=== PATIENT | female | born 1955 | race African-American/Black ===

== ENCOUNTER 2016-08-30 06:55 | Emergency (ER) | payer MEDICARE, OTHER ==
--- NOTE | ~2016-08-30 | OR ---
Unit #: [id number] #: [id number] Patient: ERIKA THOMPSON [id number] [address] [place], [place] [address] [id number] MR#: [id number] NAME: ERIKA THOMPSON ROOM: Date of Procedure: 08/30/2016 Admission Date: 08/30/2016 Surgeon: Roosevelt Resendiz M.D. : 1955 Attending Physician: Med Price M.D. Primary Care Physician: Primary Care Physician No OPERATIVE REPORT JOB NOTE: CC: PRIMARY CARE PHYSICIAN INDICATIONS FOR PROCEDURE Esophagogastroduodenoscopy with percutaneous endoscopic gastrostomy tube placement. INDICATIONS FOR PROCEDURE The patient had a G-tube placement for dysphagia. She had it pulled out, so currently have no enteral access and she is brought in for an EGD and PEG tube placement. MEDICATIONS Monitored anesthesia. POSTOPERATIVE FINDINGS 1. Small hiatal hernia. 2. Mild chronic gastritis. 3. Normal duodenum and distal duodenum. 4. Successful placement of PEG tube by push method. PLAN Restart feeding and medications. DESCRIPTION OF PROCEDURE The patient was explained of the procedure, risks, and benefits. Informed consent was obtained from power of compliance attorney. She was brought to the endoscopy room. Propofol anesthesia was given. The scope was passed down the mouth into the esophagus, stomach, duodenum, and distal duodenum. Exam was completed. I passed a wire through the previous gastrostomy hole after a little manipulation, which was then pulled out of the patient's mouth using a snare along with the scope. A new push method tube was placed over the wire and pulled out of the anterior abdominal wall, where it was secured with an external bumper. The scope was reintroduced to look at the inner bumper, which was nicely in place. Gently, I pulled the scope out. She tolerated it well. No major complications were seen. Dictated by... Fan Magallon/damian Unit #: [id number] #: [id number] Patient: ERIKA THOMPSON TD: 08/30/2016 21:56 JOB #: [id number] OPERATIVE REPORT X Roosevelt Resendiz MD OPERATIVE NOTE
[~2016-08-30 06:55] MED LIST: AMLODIPINE BESYL5 MG PO; AUGMENTIN PO; BENZTROPINE MESY1 MG PO; BP MED PO; BUMETANIDE1 MG PO; COLACE PO; DICLOFENAC PO; FAMVIR500 M1 PO; GABAPENTIN400 MG PO; GABAPENTIN600 MG PO; GLYBURIDE PO; HALOPERIDOL2 MG PO; HCTZ PO; HUMULIN 70/30 V10 ML; HUMULIN 70100 UNIT/1; HYDROCHLOROTHIA25 MG PO; HYDROCODON-ACE1 EAC9 PO; IPRAT-ALBUT 0.5-3 ML INH; IPRATR-ALBUTEROL3 ML INH; ISORDIL40 MG PO; LANTUS100 UNITS/ SUBQ; LEVEMIR100 UNITS/ SUBQ; LIPITOR PO; LIPITOR20 MG PO; LISINOPRIL PO; LISINOPRIL20 MG PO; LOPRESSOR PO; LORAZEPAM1 MG PO; LORTAB 5/500 TA1 TA1 PO; METFORMIN; METFORMIN PO; METOPROLOL SUCC25 MG PO; METOPROLOL TART25 MG PO; MOBIC15 MG PO; NAPROSYN500 MG PO; NEURONTIN; NEURONTIN PO; NORVASC PO; NOVOLOG7030 SUBQ; PANTOPRAZOLE SO40 MG PO; PREDNISONE PO; PRILOSEC PO; PROMOD946 ML PO; REGLAN10 MG PO; SERTRALINE HCL50 MG PO; SILVASORB480 ML TOP; TRAMADOL HCL50 M1 PO; TYL325 PO; UNKNOWN INSULIN; ZESTRIL40 MG PO; ZOLOFT; ZOLOFT PO; ZOLOFT50 MG PO; ZYRTEC PO; [UNRECOGNIZED DRUG - REMARK]; [UNRECOGNIZED DRUG - REMARK]
== END 2016-08-30 11:20 | disposition home or self-care (01) ==
LOC: CED 06:55
DX: Z46.59 Encounter for fitting and adjustment of other gastrointestinal appliance and device (principal); I10 Essential (primary) hypertension; I63.9 Cerebral infarction, unspecified; E11.9 Type 2 diabetes mellitus without complications; Z88.2 Allergy status to sulfonamides; Z88.8 Allergy status to other drugs, medicaments and biological substances; Z79.4 Long term (current) use of insulin
CPT/HCPCS: 82947; 96374; 99283; 99285; J0690

== ENCOUNTER 2016-09-11 23:56 | Inpatient (IN) | payer MEDICARE, OTHER ==
--- NOTE | ~2016-09-11 | EKG ---
PATIENT: ERIKA THOMPSON UNIT #: [id number] Ventricular Rate: 71 BPM Atrial Rate: 71 BPM P-R Interval: 204 ms QRS Duration: 124 ms Q-T Interval: 474 ms QTC Calculation(Bezet): 515 ms P Geary: 33 degrees Calculated R Geary: -26 degrees Calculated T Geary: 13 degrees Diagnosis Line: Sinus rhythm with frequent Premature ventricular Diagnosis Line: complexes in a pattern of bigeminy Fusion Diagnosis Line: complexes Diagnosis Line: Left ventricular hypertrophy with QRS widening Diagnosis Line: Possible Lateral infarct , age undetermined Diagnosis Line: Abnormal ECG Diagnosis Line: No previous ECGs available Diagnosis Line: Confirmed by NIXON NICHOLS MD ([id number]) on 09/12/2016 Diagnosis Line: 5:46:03 PM INTERPRETING MD: MAGDALENA LOO
--- NOTE | ~2016-09-11 | CR42 ---
[facility] A Service of [facility] RADIOLOGY TEXT RESULTS PATIENT: ERIKA THOMPSON LOCATION: [facility] : 53 UNIT #: [id number] AGE: [address]: Mari Betancourt MD SEX: F ORDER DR: [id number] [facility] [address] [place], [place] [address] [id number] I MR#: [id number] Acc #: [id number] NAME: ERIKA THOMPSON : 1955 SEX: F STUDY DATE/TIME: 09/12/2016 9:32 UNIT: [facility] ROOM: [facility] STUDY DESCRIPTION: CR Barium Enema Attending Physician: Mari Betancourt M.D. Ordering Physician: Leo Khanna M.D. Primary Care Physician: Mari Betancourt M.D. MEDICAL IMAGING REPORT This report is preliminary unless electronic signature is present EXAM Barium enema. HISTORY Colonic distention and suspected stenotic narrowing in the sigmoid colon on recent CT. PROCEDURE Novelty Dipper radiograph obtained. Water soluble contrast was instilled into the colon via the rectum. Spot images were obtained. Overhead images were obtained. A total of 10 fluoroscopic images were obtained. Fluoro time 2.[address] abdomen and pelvis, 09/11/2016. FINDINGS There is significant gaseous distention of the colon. Study was extremely difficult, given patient's body habitus and immobility. The colon was filled with water soluble contrast all the way to the cecum. No definite obstructing mass was seen. There is no evidence for high-grade obstruction. IMPRESSION Difficult study secondary to patient body habitus and mobility issues. The colon is diffusely distended, but there is no evidence for high-grade obstruction. It is difficult to exclude a nonobstructing mass on this study. Dictated by... Gurjit Mccord M.D. [facility] A Service [facility] RADIOLOGY TEXT RESULTS PATIENT: ERIKA THOMPSON LOCATION: [facility] : 53 UNIT #: [id number] AGE: [address]: Mari Betancourt MD SEX: F ORDER DR: THIS IS AN ELECTRONICALLY VERIFIED REPORT Gurjit Mccord M.D. at 09/13/2016 2:11 PM Suhail TD: 09/12/2016 18:25 JOB #: [id number] MEDICAL IMAGING REPORT COPY
--- NOTE | ~2016-09-11 | XA166 ---
[facility] A Service of [facility] RADIOLOGY TEXT RESULTS PATIENT: ERIKA THOMPSON LOCATION: [facility] : 53 UNIT #: [id number] AGE: [address]: Mari Betancourt MD SEX: F ORDER DR: [id number] [place] [id number] [place], [place] [address] [id number] I MR#: [id number] Acc #: [id number] NAME: ERIKA THOMPSON : 1955 SEX: F STUDY DATE/TIME: 09/13/2016 13:46 UNIT: [facility] ROOM: [facility] STUDY DESCRIPTION: XA PICC Line Placement WO Port Attending Physician: Mari Betancourt M.D. Ordering Physician: Deborah Sierra M.D. Primary Care Physician: Mari Betancourt M.D. MEDICAL IMAGING REPORT This report is preliminary unless electronic signature is present EXAM PICC placement with ultrasound and fluoroscopic guidance. HISTORY Venous access needed for medication. TECHNIQUE Informed consent was obtained from the patient's cash posting representative. Full-barrier sterile technique was employed via standard protocol. Using full-barrier sterile technique and following local anesthesia with 1% Xylocaine, a brachial vein was punctured above the elbow on the right with ultrasound guidance. Ultrasound was used to confirm vessel patency, which was confirmed, and permanent ultrasound images were recorded. A dilator and sheath were placed over the wire after it was advanced through the needle and into the superior vena cava. A 5 Mexican double-lumen PICC was measured to 39 cm, cut and deployed with the tip positioned in the lower superior vena cava. The line was secured in place with an antibiotic patch and adhesive dressing. Total fluoroscopy time was 0.1 minutes with a total dose of 2 mGy. 1 spot film. IMPRESSION Successful placement of a 5 Mexican double-lumen PICC, via the right brachial vein above the elbow with ultrasound and fluoroscopic guidance. Dictated by... [facility] A Service [facility] RADIOLOGY TEXT RESULTS PATIENT: ERIKA THOMPSON LOCATION: [place] [id number] : 53 UNIT #: [id number] AGE: [address]: Mari Betancourt MD SEX: F ORDER DR: Yared Aguero M.D. THIS IS AN ELECTRONICALLY VERIFIED REPORT Yared Aguero M.D. at 09/15/2016 9:40 PM DREAD/gamaliel TD: 09/13/2016 18:46 JOB #: [id number] MEDICAL IMAGING REPORT COPY
--- NOTE | ~2016-09-11 | FU ---
[facility] Nutrition Therapy DATE: 09/17/16 Patient: ERIKA THOMPSON Physician: JAIRO Address: [facility] Room/Bed: [address] [place] [address], Zip: [place] [address] Admit Date: 09/12/16 Date of : [birth year] Height: 5 5 Weight: 229 104 NUTRITION MONITORING/FOLLOW-UP: Reason: Nutrition support follow-up Admitting Dx: 61 y/o female admitted with ileus Anthropometrics: Ht: 65", admission wt: 238 lbs, current wt: 229 lbs (104 kg), BMI: 39.6 (Stage II obese), IBW: 56.8 kg Labs: Glucose POC 109-127, other labs reviewed; nothing significant Meds: MgSO4, Kcl, Novolog (high SSI), Levemir, PPI I&O's: 734/1650, last BM 09/16 (diarrhea) Skin: L BKA, PEG site, trace-generalized edema noted Estimated Nutrition Needs: 7435-0389 kcals per day (15-18 kcals/kg admission wt) 85-113 g protein per day (1.5-2.0 g/kg IBW) Fluids consistent with kcal needs or per MD Assessment: Chart reviewed, events noted. CR abdomen 09/16 showed delayed gastrointestinal transit, mild distension R colon and adynamic ileus that is resolving. A/O x 1-2, on 2L nasal cannula, some confusion noted. Patient sleeping at time of visit to room, enteral nutrition started today- Vital 1.5 running @ 20 ml/hr. Patient noted in chart to be tolerating feeds thus far. TPN discontinued yesterday and PICC line removed. Currently on clear liquid diet- 50% of tray consumed this morning. NETWORK PLANNER holding off on eval at this time. Previous nutrition goals not yet met, nutrition dx remains. See additional nutrition dx and RD recs below. Dx: 1) Inadequate oral intake r/t dysphagia AEB need for enteral nutrition, PEG tube - ACTIVE 2) Inadequate enteral nutrition infusion r/t EN not yet at goal rate AEB Vital 1.5 @ 20 ml/hr (goal 55 ml/hr) - ACTIVE Intervention: Increase EN to goal Monitoring, Evaluation and Goals: SOME MET New goals: 1. EN to provide > 80% goal volume x 24 hours. [facility] Nutrition Therapy DATE: 09/17/16 Patient: ERIKA THOMPSON Physician: JAIRO Address: [facility] Room/Bed: [address] [place] [address], Zip: [place] [address] Admit Date: 09/12/16 Date of : [birth year] Height: 5 5 Weight: 229 104 2. Lytes, glucose WNL. 3. Promote gradual weight loss towards a healthy BMI range. 4. Promote regular GI function. Monitor: Per protocol, criteria to determine if above goals met Recommendations: 1. Increase enteral nutrition with Vital 1.5 by 10 ml q 8 hours until goal rate of 55 ml/hr is reached, to provide 1980 kcals, 89 g protein and 912 ml water. Free water flushes per MD once at goal. 2. Advance oral diet per NETWORK PLANNER once appropriate. If oral diet is advanced beyond clear liquids suggest changing enteral feeding regimen to nocturnal feeds with Vital 1.5 @ 65 ml x 12 hours (7p-7a) to provide 1170 kcals, 52 g protein and 593 ml water (~70% kcal needs, ~61% protein needs). Free water per MD. 3. Consider adding Reglan to the patient's medication regimen to promote GI motility. Status: Moderate nutrition risk Respectfully, Malia Morales RD, LD Food and Nutritional Services [facility] cc: client file
--- NOTE | ~2016-09-11 | CR72 ---
[facility] A Service of [facility] RADIOLOGY TEXT RESULTS PATIENT: ERIKA THOMPSON LOCATION: [place] [address] : [birth year] UNIT #: [id number] AGE: [address]: Mari Betancourt MD SEX: F ORDER DR: [id number] [facility] [address] [place], [place] [address] [id number] I MR#: [id number] Acc #: [id number] NAME: ERIKA THOMPSON : 1955 SEX: F STUDY DATE/TIME: 09/12/2016 3:30 UNIT: [facility] ROOM: [id number] STUDY DESCRIPTION: CR Chest Single View Portable Attending Physician: Mari Betancourt M.D. Ordering Physician: Deborah Sierra M.D. Primary Care Physician: Mari Betancourt M.D. MEDICAL IMAGING REPORT This report is preliminary unless electronic signature is present EXAM AP portable chest date 09/12/2016 at 03:30 HISTORY Abdominal pain and shortness breath today. Former smoker. COMPARISON AP portable chest 08/07/2016. FINDINGS Stable cardiomegaly. Airspace disease changes in the [id number] lung zones, greatest in the right lower lobe have developed. Benign calcified lymph nodes are seen in each hilar region. Tracheostomy appliance remains in the upper thoracic trachea. No visible pneumothorax. IMPRESSION 1. Bilateral mid and lower lung zone airspace disease changes. Findings may represent changes of pneumonia or aspiration in the appropriate clinical context. These findings appear new or increased compared to the 08/07/2016 examination. 2. Stable cardiomegaly. Dictated by... Kerry Sherman M.D. THIS IS AN ELECTRONICALLY VERIFIED REPORT Kerry Sherman M.D. at 09/13/2016 12:10 AM RAFAELA/pinky TD: 09/12/2016 12:34 JOB #: [id number] MEDICAL IMAGING REPORT [facility] A Service of [facility] RADIOLOGY TEXT RESULTS PATIENT: ERIKA THOMPSON LOCATION: [facility] 55- : 54 UNIT #: [id number] AGE: [address]: Mari Betancourt MD SEX: F ORDER DR: COPY
--- NOTE | ~2016-09-11 | A ---
[facility] Nutrition Therapy DATE: 09/13/16 Patient: ERIKA THOMPSON Physician: JAIRO Address: [facility] Room/Bed: [address] [place] [address], Zip: [place] [address] Admit Date: 09/12/16 Date of : 53 Height: 5 5 Weight: 218 99 NUTRITIONAL ASSESSMENT: REASON: PT SEEN FOR DX, ALSO CONSULT RECEIVED + PT TO HAVE PEG TUBE PT IS 61 Y.O. FEMALE ADMITTED FOR ILEUS R/O OBSTRUCTION PMH: IMMOBILIZATION SYNDROME, HTN, (L) AKA, CAD, DM, HLD, DC, CVA, BARKLEY PALSY, TRACH AND PEG PLACEMENT, RESP FAILURE Anthropometrics: 5'5", WT: 238# (108 KG), BMI: 39.6, 190%IBW Labs: GLU: 202, K+:2.9, ALB: 3.0, ALT: 9 Meds: LEVEMIR, PROTONIX, NOVOLOG, MAG SULFATE, KCL I/O & Bowel function: 530/1200 Skin Integrity: (R) FOOT ULCER NOTED; PEG AND TRACH IN PLACE EDEMA: FACE GENERALIZED EDEMA; (L) EYE GENERALIZED EDEMA; RLE GENERALIZED EDEMA Estimated Nutrition Needs: 4022-8712 KCAL (15-18 KCAL/KG BW) 85-113 G PRO (1.5-2.0 G PRO/KG IBW) FLUIDS CONSISTENT W/KCAL NEEDS OR MANAGE PER MD Assessment: CHART REVIEWED AND EVENTS NOTED. PT SEEN FOR DX + CONSULT. PT MINIMALLY VERBAL, UNABLE TO FULLY COMMUNICATE. PER RN AND CHART, PT NOTED TO HAVE DISTENDED ABD, DIARRHEA AND DECREASED PO INTAKE AND APPETITE PRIOR TO ADMIT PER NURSING HISTORY. PT RECEIVES PUREED CLEAR LIQUID DIET AT DETENTION + ENTERAL NUTRITION SUPPORT AT NIGHT (RD SAW VITAL 1.5 IN DETENTION CHART). NO FAMILY IN ROOM AT TIME OF VISIT. RD TO FOLLOW. SEE RECOMMENDATIONS BELOW. Dx: INADEQUATE ORAL INTAKE R/T PMH AEB NEED FOR PEG TUBE, HOME ALTERNATIVE NUTRITION SUPPORT REGIMEN IN PLACE. Intervention: 1. CLEAR LIQUID DIET 2. RD CONSULT Monitoring, Evaluation and Goals: 1. PO INTAKE; PROVIDE AND CONSUME ADEQUATE NUTRITION W/NO C/O N/V/D (PO>50%) 2. ENTERAL NUTRITION; PROVIDE ~80-100% ESTIMATED NUTRIENT NEEDS W/NO NO SIGNS OF INTOLERANCE 3. WEIGHTS; PROMOTE GRADUAL WEIGHT LOSS 4. GI; PROMOTE REGULAR GI FUNCTION [facility] Nutrition Therapy DATE: 09/13/16 Patient: ERIKA Almaraz JAY Physician: JAIRO Address: [facility] Room/Bed: [address] [place] [address], Zip: [place] [address] Admit Date: 09/12/16 Date of : 53 Height: 5 5 Weight: 218 99 MONITOR: -WEIGHTS -DIET ADVANCEMENT/PO INTAKE/APPETITE -ENTERAL NUTRITION SUPPORT? -LABS Recommendations: 1. ONCE MEDICALLY FEASIBLE, ADVANCE DIET PER MELTER LOADER. MELTER LOADER TO FOLLOW FOR ANY FURTHER SWALLOWING DIFFICULTIES 3. IF PT CONSUMING <~50% PO INTAKE, RECOMMEND TO BEGIN NOCTURNAL ENTERAL NUTRITION SUPPORT OF VITAL 1.5 @ 20 ML/HR, ADVANCE 10 ML q 4 HOURS TO GOAL RATE OF 65 ML/HR X 12 HOURS (7P-7A) -PROVIDES 1170 KCAL, 52 G PRO, 593 ML FREE H20 (PROVIDES ~70% KCAL AND ~61% PROTEIN NEEDS) ADD FREE H20 FLUSHES PER MD 3. IF PO INTAKE MINIMAL, RECOMMEND TO BEGIN ALTERNATIVE NUTRITION SUPPORT OF VITAL 1.5 @ 20 ML/HR, ADVANCE 10 ML q 4 HOURS TO GOAL RATE OF 55 ML/HR -PROVIDES 1980 KCAL, 89 G PRO, 912 ML FREE H20 ADD FREE H20 FLUSHES PER MD RD WILL F/U PER PROTOCOL PT IS MODERATELY COMPROMISED Respectfully, DEONDRE NOEL MS, RD, LD Food and Nutritional Services [facility] cc: client file
--- NOTE | ~2016-09-11 | XA166 ---
[facility] A Service of [facility] RADIOLOGY TEXT RESULTS PATIENT: ERIKA THOMPSON LOCATION: A : 53 UNIT #: [id number] AGE: [address]: Sudha Stroud MD SEX: F ORDER DR: [id number] [facility] [address] [place], [place] [address] [id number] I MR#: [id number] Acc #: [id number] NAME: ERIKA THOMPSON : 1955 SEX: F STUDY DATE/TIME: 09/17/2016 11:29 UNIT: [facility] ROOM: [facility] STUDY DESCRIPTION: XA PICC Line Placement WO Port Attending Physician: Sudha Stroud M.D. Ordering Physician: Mari Betancourt M.D. Primary Care Physician: Mari Betancourt M.D. MEDICAL IMAGING REPORT This report is preliminary unless electronic signature is present EXAM XA PICC line placement INDICATION 61-year-old female who needs IV access. PRE-PROCEDURE The procedure was explained to the patient and/or patient fulfillment representative including risks, benefits, potential complications and potential for alternative forms of treatment. Informed consent was obtained, and prior to initiating the procedure a formal timeout procedure was performed. PROCEDURE Using full standard sterile barrier technique, including caps, gowns, gloves, masks, as well as sterile skin preparation and standard sterile draping, the right brachial vein was prepped and draped in the usual fashion, and real-time sterile ultrasound guidance was used to localize an arm vein and to confirm vessel patency. A hard copy ultrasound image was recorded. After local anesthesia with 1% Xylocaine, the vein was punctured using real-time sterile ultrasound guidance, and an 0.018 guidewire was advanced into the superior vena cava, using fluoroscopic guidance. A 5 Swazi double-lumen 39 cm PICC was then measured and deployed with the tip positioned in the superior vena cava. The position of the line was documented with a radiographic image. The line was secured in place with an adhesive dressing and an antibiotic patch was applied. Total fluoro time was 0.1 minutes. IMPRESSION Successful placement of a 5 Swazi double-lumen 39 cm Power PICC via the right brachial vein under ultrasound and fluoroscopic guidance. The tip of the PICC is in good position in the superior vena cava. Reference [place] [facility] A Service of [facility] RADIOLOGY TEXT RESULTS PATIENT: ERIKA THOMPSON LOCATION: [place] [address] : 53 UNIT #: [id number] AGE: [address]: Sudha Stroud MD SEX: F ORDER DR: Sabrina. Dictated by... Chacorta Godinez M.D. THIS IS AN ELECTRONICALLY VERIFIED REPORT Chacorta Godinez M.D. at 09/18/2016 11:32 AM LEE/abbe TD: 09/18/2016 07:43 JOB #: [id number] MEDICAL IMAGING REPORT Page 1 of 1 COPY
--- NOTE | ~2016-09-11 | CT4 ---
[facility] A Service of [facility] RADIOLOGY TEXT RESULTS PATIENT: ERIKA THOMPSON LOCATION: [place] [address] : 53 UNIT #: [id number] AGE: [address]: Mari Betancourt MD SEX: F ORDER DR: [id number] [facility] [address] [place], [place] [address] [id number] I MR#: [id number] Acc #: [id number] NAME: ERIKA THOMPSON : 1955 SEX: F STUDY DATE/TIME: 09/11/2016 23:49 UNIT: [facility] ROOM: [id number] STUDY DESCRIPTION: CT Abd and Pelv Wo Cont Attending Physician: Mari Betancourt M.D. Ordering Physician: Ervin Erickson M.D. Primary Care Physician: Mari Betancourt M.D. MEDICAL IMAGING REPORT This report is preliminary unless electronic signature is present EXAM CT abdomen and pelvis without contrast. DATE 09/11/2016 at 2349 HISTORY 61-year-old female with abdominal pain and distension for 2 days. [facility]. COMPARISON CT abdomen and pelvis with contrast 02/17/2015. CTA AIF 04/12/2016. PROCEDURE 3 mm axial images from the lung bases through the lesser trochanters without intravenous or enteric contrast. Sagittal and coronal reformatted images were obtained. This CT exam was performed with one or more of the following radiation dose reduction techniques: automatic exposure control, adjustment of mA and/or kV according to patient size, and iterative reconstruction. FINDINGS Interstitial and alveolar infiltrates are demonstrated within the bilateral lower lobes, right middle lobe, and lingula. There is moderate cardiomegaly. Coronary artery calcifications are present. Calcified granulomatous changes are present within the mediastinal bilateral hilar regions and bilateral lower lobes. Percutaneous gastrostomy tube is in place. No free air is identified. Multiple peripherally calcified gallstones are present without definite pericholecystic inflammatory change. Noncontrast appearance of the liver, spleen, right adrenal and kidneys within normal limits. Mild pancreatic [facility] A Service of [facility] RADIOLOGY TEXT RESULTS PATIENT: ERIKA THOMPSON LOCATION: [facility] [id number] : 53 UNIT #: [id number] AGE: [address]: Mari Betancourt MD SEX: F ORDER DR: parenchymal atrophy. Mild left adrenal thickening without discrete nodularity, likely on the basis hyperplasia, unchanged. There is air-fluid distension of the sigmoid colon with a relative lesser degree of gaseous distension of the ascending and transverse colon. There is 1 focus of narrowing in the more proximal sigmoid colon (series 2 image #100), which may represent a focal stricture. No convincing evidence of sigmoid torsion. No pneumatosis. No free air. PELVIS FINDINGS: 4.0 x 3.3 cm mixed fat-soft tissue density lesion in the right hemipelvis compatible with the appearance of a dermoid, not appreciably changed allowing for differences in measurement technique compared to prior exam. Urinary bladder is moderately distended. Rectum is moderately distended with fluid. Hysterectomy. No acute osseous abnormalities are identified. IMPRESSION 1. Marked abnormal gaseous distension of the colon, greatest in the sigmoid colon with air-fluid levels. There is 1 focal area of narrowing in the upper sigmoid colon region (series 2 image 100 denoted by arrows). This does not have a typical appearance for sigmoid volvulus, and may represent a focal stricture. However, this could be further evaluated with a Gastrografin enema which can be performed on a nonemergent basis. Rectal tube decompression would be recommended, however, at this time. 2. No pneumatosis or free air. 3. Percutaneous gastrostomy tube in place. 4. Patchy infiltrates within bilateral lower lobes, right middle lobe, and lingula. Correlate for aspiration or pneumonia. 5. Stable moderate cardiomegaly with coronary artery calcifications. Granulomatous changes in the chest. 6. Extensive cholelithiasis without CT evidence of cholecystitis. 7. Right adnexal dermoid tumor, not thought to be significantly changed since the prior study. Dictated by... Kerry Sherman M.D. THIS IS AN ELECTRONICALLY VERIFIED REPORT Kerry Sherman M.D. at 09/13/2016 12:10 AM [facility]/franklyn TD: 09/12/2016 11:55 JOB #: [id number] MEDICAL IMAGING REPORT [facility] A Service of [facility] RADIOLOGY TEXT RESULTS PATIENT: ERIKA THOMPSON LOCATION: [facility] [id number] : 53 UNIT #: [id number] AGE: [address]: Mari Betancourt MD SEX: F ORDER DR: COPY
--- NOTE | ~2016-09-11 | CO ---
Unit #: [id number] #: [id number] Patient: ERIKA MARIN [id number] [address] [address] [id number] I MR#: [id number] NAME: ERIKA MARIN. ROOM: 55 Age: 61 Sex: F Admission Date: 09/12/2016 : 1955 Attending Physician: Mari Betancourt M.D. Primary Care Physician: Mari Betancourt M.D. Consultation Date: 09/12/2016 CONSULTATION REPORT REASON FOR CONSULTATION Dilated colon. Thank you very much for asking us to see Ms. Marin. 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 She has a history of diabetes and hypertension. She was sent from the skilled nursing for abdominal distention. The patient has no complaints, but was found per the chart to have a distended abdomen for the last several days. She had been unable to tolerate a diet per the nursing history. She came to the emergency room where CT scan was performed, which revealed a markedly distended and dilated colon with a possible area of narrowing in the upper sigmoid area. It was felt to possibly be a stricture. She presents at this time for further evaluation and treatment. PAST MEDICAL HISTORY 1. Recent hospitalization for E coli urinary tract infection, hypokalemia and hypoglycemia. 2. Immobilization syndrome. The patient has a history of previous respiratory failure with tracheostomy tube and PEG tube in place. 3. History of CVA. 4. Diabetes. 5. Hypertension. 6. Hyperlipidemia. 7. Status post left AKA. 8. Right hand surgery. 9. Status post appendectomy. ALLERGIES Neomycin, bacitracin, polymyxin and Flagyl. MEDICATIONS Please see med rec sheet. FAMILY HISTORY Noncontributory. SOCIAL HISTORY No tobacco or alcohol use currently. She lives at [facility]. REVIEW OF SYSTEMS Unit #: [id number] #: [id number] Patient: ERIKA MARIN Unable to be obtained. IMMUNIZATION STATUS Unknown. PHYSICAL EXAMINATION GENERAL: Well-developed, black female, in no apparent distress. VITAL SIGNS: Afebrile, vital signs stable. NECK: Supple. No thyromegaly or adenopathy. BACK: No CVA or spinous tenderness. ABDOMEN: Moderately distended, but soft. No rebound, peritoneal signs, masses or hernias are palpable. There is no rigidity. EXTREMITIES: The patient is status post left AKA. No calf tenderness on the right side. RECTAL: Reveals good sphincter tone. No masses palpable. No blood. There was a fair amount of gas present in the rectal wall, but no stool is present. DIAGNOSTIC STUDIES LABORATORY RESULTS: White count platelet count were normal. Hematocrit was 35.1. Glucose was 141 and liver function studies were normal. IMAGING STUDIES: As mentioned previously, imaging shows on CT scan, gases, dilation of the colon with one focal area of narrowing in the upper sigmoid colon. It did not appear to be consistent with a volvulus. The patient was also found to have cholelithiasis. IMPRESSION A 61-year-old female with immobilization syndrome, with significantly distended colon. We feel that she needs correction of her potassium. She needs to have her urinary tract infection treated and antibiotics have been initiated. We also felt that she needs a Gastrografin enema to check for obstruction. Dictated by... Leo Khanna M.D. EDITH/damian TD: 09/13/2016 02:10 JOB #: [id number] CC: Deborah Sierra M.D. [facility] CONSULTATION REPORT X Leo Khanna MD X CONSULTATION REPORT
--- NOTE | ~2016-09-11 | CR6 ---
[facility] A Service of [facility] RADIOLOGY TEXT RESULTS PATIENT: ERIKA THOMPSON LOCATION: [facility] 55- : 54 UNIT #: [id number] AGE: [address]: Sudha Stroud MD SEX: F ORDER DR: [id number] [facility] [address] [place], [place] [address] [id number] I MR#: [id number] Acc #: [id number] NAME: ERIKA THOMPSON : 1955 SEX: F STUDY DATE/TIME: 09/16/2016 08:27 UNIT: [facility] ROOM: [facility] STUDY DESCRIPTION: CR Abdomen Portable Sng View Attending Physician: Sudha Stroud M.D. Ordering Physician: Leo Khanna M.D. Primary Care Physician: Mari Betancourt M.D. MEDICAL IMAGING REPORT This report is preliminary unless electronic signature is present EXAM Abdomen portable 09/16/2016 0827 hours HISTORY Abdominal pain and distension since 09/12/2016. Evaluate ileus versus obstruction. COMPARISON Barium enema 09/12/2016. FINDINGS 2 views of the abdomen and pelvis demonstrate retained contrast material throughout the colon which is mildly dilated in the right colon but decompressed in the left colon. There is mild gaseous distension of small bowel. There is linear atelectasis at the left lung base. IMPRESSION 1. There is retained contrast material in the colon presumably from the barium enema study of 09/12/2016 which would suggest delayed transit. There is mild distension of the right colon but the left colon is decompressed. 2. Small amount of air in mildly dilated loops of small bowel likely adynamic ileus. Dictated by... Rhiannon Walls M.D. THIS IS AN ELECTRONICALLY VERIFIED REPORT Rhiannon Walls M.D. at 09/16/2016 2:27 PM BETH/abbe TD: 09/16/2016 14:12 [facility] A Service of [facility] RADIOLOGY TEXT RESULTS PATIENT: ERIKA THOMPSON LOCATION: [facility] [id number] : 53 UNIT #: [id number] AGE: [address]: Sudha Stroud MD SEX: F ORDER DR: EDUARDA #: [id number] MEDICAL IMAGING REPORT COPY
--- NOTE | ~2016-09-11 | HP ---
Unit #: [id number] #: [id number] Patient: ERIKA THOMPSON [id number] [address] [place], [place] [address] [id number] I MR#: [id number] NAME: ERIKA THOMPSON ROOM: 70412 Age: 61 Sex: F Admission Date: 09/12/2016 : 1955 Attending Physician: Deborah Sierra M.D. Primary Care Physician: Mari Betancourt M.D. HISTORY AND PHYSICAL CHIEF COMPLAINT Gaseous distention of the colon, ileus versus obstruction. HISTORY This 61-year-old female with immobilization syndrome, PEG and trach in place, diabetes, hypertension, was sent from the custodial for abdominal distention. The patient herself has no complaints, although she is pleasantly confused. According to custodial records, she has had no bowel sounds with distended abdomen for the past three days. However, it sounds as if she has been able to tolerate her diet. She presents to this emergency department where a CT scan performed shows marked distention and dilation of the colon. There is one focal area of narrowing in the upper sigmoid colon, could be a stricture. However, patient's abdominal examination is completely benign, although she is somewhat distended. PAST MEDICAL HISTORY 1. Recent admission 07/2016 for E. coli urinary tract infection, toxic metabolic encephalopathy, hypokalemia, and hypoglycemia. 2. Patient is immobilized. Old records give a history of previous respiratory failure with trach and PEG tube in place. Will obtain [facility]. 3. History of CVA. 4. [place]ano palsy in the past. 5. AODM. 6. Hypertension. 7. Hyperlipidemia. 8. Anxiety and depression. 9. Status post left AKA. 10. Right hand surgery. 11. Appendectomy. ALLERGIES Neomycin, bacitracin, polymyxin, Flagyl. SKILLED NURSING MEDICINES DuoNeb q.6 hours; Isordil 40 mg t.i.d.; Cogentin 1 mg daily; Protonix 40 mg daily; Bumex 1 mg b.i.d.; Lopressor 75 mg b.i.d.; potassium 40 mEq b.i.d.; Norvasc 10 mg daily; Neurontin 600 mg b.i.d.; p.r.n. [place], Ativan, Haldol, DuoNeb, Tylenol; NovoLog 15 units subcu t.i.d. and medium sliding scale NovoLog; Levemir 30 units subcu q.h.s.; skin care treatments and trach care. Unit #: [id number] #: [id number] Patient: ERIKA THOMPSON FAMILY HISTORY Unobtainable, patient is pleasantly confused. SOCIAL HISTORY The patient lives at [facility]. Previously smoked. Does not drink alcohol. REVIEW OF SYSTEMS Impossible to obtain as patient is pleasantly confused. PHYSICAL EXAMINATION GENERAL: Pleasantly confused, 61-year-old female, currently in no acute distress. VITAL SIGNS: Temperature 98.3, pulse 76, respirations 16, blood pressure 142/81, O2 saturation 94% on room air. HEENT: Notable for slight ptosis of the left eye, extraocular muscles are intact, PERRLA. Pharynx is benign. Slight left lower facial droop noted. NECK: Supple without adenopathy or thyromegaly. Tracheostomy in place. CHEST: Fairly clear on patent's supine exam. CARDIAC: Normal S1 and S2, occasionally irregular without definite murmur. ABDOMEN: Bowel sounds are markedly diminished. Patient's abdomen is somewhat distended although nontender. No definite hepatosplenomegaly or masses. EXTREMITIES: Status post left AKA with clean dry stump. Right leg without pedal edema. Pedal pulses diminished. No ulcer on the right foot. NEUROLOGIC: Patient is pleasantly confused. She is oriented to person. She has a slightly left facial droop. She is slightly weak on the right arm as compared to the left. She is generally weak throughout. DIAGNOSTIC STUDIES LABS: Hematocrit is 35.1, normal white count and platelet count. SMA 12 - glucose 141, potassium 3, chloride 98, CO2 32, albumin 3, alk phos 97, normal lipase. CT scan - more gaseous dilation of the colon. One focal area of narrowing in the upper sigmoid colon, not topical of volvulus. Maybe stricture. Patchy lower lobe infiltrates, gallstones, right adnexal dermoid tumor. CARDIOLOGY STUDIES: EKG - sinus rhythm rate 70 with bigeminy. Bigeminy has been noted in the past as well. Left axis deviation. ASSESSMENT 1. Gaseous distention of the colon, but no tenderness and patient has no complaints. Clinically this acts more like an ileus. However, there is a questionable colonic stricture on CT scan. 2. Hypokalemia. 3. Immobilization syndrome with PEG and trach. I am unsure of the original etiology for the patient's immobilization syndrome, PEG and trach. 4. AODM. 5. Hypertension. 6. Prior CVA. 7. Left below the knee amputation. 8. COPD. 9. Questionable infiltrates on the basis of CT scan of the abdomen but no cough. 10. Bigeminy previously noted as well. Unit #: [id number] #: [id number] Patient: ERIKA THOMPSON PLANS 1. Rectal tube. 2. IV fluids. 3. Change medication to an alternate route while NPO. 4. Zosyn pending chest x-ray and urinalysis. 5. [facility] have been consulted. 6. Old records. 7. Replace potassium and check magnesium. 8. Further workup and consultants depending on above. Dictated by Deborah Sierra M.D. AML/ts TD: 09/12/2016 05:24 JOB #: [id number] HISTORY AND PHYSICAL X Deborah Sierra MD X HISTORY AND PHYSICAL
--- NOTE | ~2016-09-11 | CR72 ---
[facility] A Service of [facility] RADIOLOGY TEXT RESULTS PATIENT: ERIKA THOMPSON LOCATION: [facility] : 53 UNIT #: [id number] AGE: [address]: Sudha Stroud MD SEX: F ORDER DR: [id number] [facility] [address] [place], [place] [address] [id number] I MR#: [id number] Acc #: [id number] NAME: ERIKA THOMPSON : 1955 SEX: F STUDY DATE/TIME: 09/15/2016 5:10 UNIT: C5B ROOM: [facility] STUDY DESCRIPTION: CR Chest Single View Portable Attending Physician: Sudha Stroud M.D. Ordering Physician: Avinash Vance M.D. Primary Care Physician: Mari Betancourt M.D. MEDICAL IMAGING REPORT This report is preliminary unless electronic signature is present EXAM AP portable chest 09/15/2016 HISTORY Shortness of air. Possible pneumonia. Tracheostomy. Follow up inpatient cardiopulmonary status. TECHNIQUE AP portable chest x-ray. FINDINGS Tracheostomy tube and right arm PICC in good position. Moderately severe cardiomegaly is stable. Diffusely increased interstitial markings throughout both lungs may represent mild interstitial edema or diffuse interstitial infiltrate. This is greatest in the lung bases and is unchanged since 09/12/2016. No dense airspace consolidation or visible pleural effusion. Extensive benign calcified lymph nodes throughout the mediastinum and both pulmonary paris. Low lung volumes. IMPRESSION Stable portable chest radiograph, unchanged since yesterday. Dictated by... Sanjay Henry M.D. THIS IS AN ELECTRONICALLY VERIFIED REPORT Sanjay Henry M.D. at 09/16/2016 9:56 PM SARAHW/abbe TD: 09/16/2016 08:37 JOB #: [id number] [facility] A Service of [facility] RADIOLOGY TEXT RESULTS PATIENT: ERIKA THOMPSON LOCATION: [facility] 01 : 53 UNIT #: [id number] AGE: [address]: Sudha Stroud MD SEX: F ORDER DR: MEDICAL IMAGING REPORT COPY
--- NOTE | ~2016-09-11 | DS ---
Unit #: [id number] #: [id number] Patient: ERIKA MARIN [id number] [address] [place], [place] [address] [id number] I MR#: [id number] NAME: ERIKA MARIN. ROOM: 217 Age: 61 Sex: F Admission Date: 09/12/2016 : 1955 Discharge Date: 09/19/2016 Attending Physician: Sudha Stroud M.D. Primary Care Physician: Mari Betancourt M.D. DISCHARGE SUMMARY PRINCIPAL DIAGNOSES 1. Ileus, resolved. 2. Aspiration pneumonia, now resolved. 3. Acute hypoxic respiratory failure, resolved. 4. Hypokalemia, resolved. 5. 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 6. Hypertension. 7. Diabetes mellitus type 2, controlled. 8. History of stroke. 9. Chronic dysphagia, status post PEG. The patient is noncompliant with diet. 10. Depression. 11. Mild protein malnutrition. 12. Morbid obesity. 13. Hyperlipidemia. CONSULTANTS Dr. Khanna, general surgery. DIAGNOSTIC DATA IMAGING: CT scan of the abdomen and pelvis without contrast on 09/11/2016, gaseous distension of the colon. Patchy infiltrates in the right lower lobe and lingula, concerning for pneumonia. Cholelithiasis without cholecystitis noted. Chest x-ray on 09/12/2016 with bilateral mid and lower lung zone infiltrates. Cardiomegaly noted. KUB on 09/16/2016 retained contrast material in the colon. PROCEDURE PERFORMED Barium enema on 09/12/2016 with distension of the colon. No evidence of obstruction. CLINICAL HISTORY/HOSPITAL COURSE Ms. Marin is a 61-year-old female transferred from a nursing facility, where she had bowel sounds and distended abdomen was noted. CT scan of the abdomen and pelvis was concerning for ileus versus stricture and the patient was subsequently admitted. LSA was consulted. The patient was made n.p.o. and started on IV fluids. It was felt the patient had ileus and she was placed on supportive measures. She did undergo a barium enema with some improvement in bowel movement. Over the course of several days her ileus resolved. I will Unit #: [id number] #: [id number] Patient: ERIKA MARIN note she was on TPN for a short period while this was done, but she has now been placed back on her tube feeds, which she is tolerating. She did initially have diarrhea with resolution of ileus and this has now resolved. Will continue on medications as noted. The patient does have an extensive history of dysphagia and after discussion with the nursing facility the patient is noncompliant with diet. She is on a PEG due to her dysphagia, but she refuses to use it and again refuses to follow diet. At this point, due to her noncompliance, she has been placed on a pureed diet with honey-thickened liquids, which she is also refusing. She did have some associated aspiration pneumonia and was placed on antibiotics and has completed a course of therapy. The patient's other chronic conditions all remained stable. She is significantly deconditioned and will be discharged to rehab with a plan to transition to long-term care. The patient was not willing to discuss goals of care with me, but I would encourage a Hospice discussion with the patient given her medical noncompliance. I think she would be happiest being allowed to do what she wishes in the future. DISCHARGE CONDITION Stable. DISPOSITION Discharge to rehab. DISCHARGE MEDICATIONS 1. Duo-Neb nebulizer treatment 3 ml q.6 h. p.r.n. shortness of breath. 2. Tylenol 625 mg per G tube q.6 h. for headache or pain. 3. Cogentin 1 mg per G tube daily. 4. Haldol 2 mg per G tube q.i.d. p.r.n. agitation. 5. Ativan 1 mg per G tube b.i.d. p.r.n. anxiety. 6. Metoprolol tartrate 50 mg per PEG b.i.d. 7. Bumex 1 mg per PEG b.i.d. 8. Levemir 30 units subcutaneously at bedtime. 9. NovoLog sliding scale with meals. 10. [place] 5/325 mg 1 tablet t.i.d. p.r.n. pain per G tube. 11. Protonix 40 mg per PEG daily. 12. Isordil 40 mg per G tube t.i.d. 13. Norvasc 10 mg daily per G tube. DIET The patient ideally should be n.p.o., but given she is unwilling to follow the diet, she will be on purred diet with honey-thickened liquids. She should have constant carb, heart healthy diet. She should continue Accu-Cheks morning and evening. ACTIVITY She can increase her activity as tolerated under the care of physical therapy. FOLLOWUP The patient will follow up with Dr. Betancourt upon return to the facility. Dictated by... Sudha Stroud M.D. Unit #: [id number] #: [id number] Patient: ERIKA MARIN Sung KEH/gz TD: 09/19/2016 11:11 JOB #: [id number] DISCHARGE SUMMARY Page 1 of 1 X Sudha Stroud MD X DISCHARGE SUMMARY
[2016-09-12 01:02] LABS: BASOPHIL# 0.1 X10e3 (0-0.3); DIFF IND NO; EOSINOPHIL# 0.3 X10e3 (0-0.7); EOSINOPHIL% 3.4 % (0.0-7.0); HEMATOCRIT 35.1 % (35.0-45.0); HEMOGLOBIN 11.2 gm/dL (12.0-16.0); LYMPHOCYTE# 2.7 X10e3 (1.0-3.5); LYMPHOCYTE% 30.2 % (17.0-45.0); MEAN CELL VOLUME 77.5 FL (83-96); MEAN CORPUSCULAR HEMOGLOBIN 24.8 PG (28-34); MEAN PLATELET VOLUME 8.8 FL (6.5-11.5); MONOCYTE# 0.7 X10e3 (0-1.0); MONOCYTE% 7.9 % (3.0-12.0); NEUTROPHIL# 5.2 X10e3 (1.5-7.1); NEUTROPHIL% 57.5 % (40-75); PLATELET COUNT 345 X10e3 (140-420); RED BLOOD COUNT 4.53 X10e (3.90-5.30); RED CELL DISTRIBUTION WIDTH 16.9 % (11.0-15.5); WHITE BLOOD COUNT 9.1 X10e3 (4.0-10.5)
[2016-09-12 01:15] LABS: POC - CKMB 1.1 ng/mL (0.0-7.9); POC - TROPONIN <0.05 ng/mL (<=0.05)
[2016-09-12 01:48] LABS: ALKALINE PHOSPHATASE 97 U/L (32-92); ALT (SGPT) 9 U/L (10-40); AST (SGOT) 17 U/L (10-42); BILIRUBIN,TOTAL 0.7 mg/dL (0.2-2.0); BLOOD UREA NITROGEN 14 mg/dL (9-23); CALCIUM SERUM 8.9 mg/dL (8.4-10.2); CARBON DIOXIDE 32 mmol/L (22-31); CHLORIDE 98 mmol/L (100-111); CREATININE SERUM 0.8 mg/dL (0.6-1.4); GLOM FILT RATE Estimated ABOVE60 mL/min (>60); GLUCOSE FASTING 141 mg/dL (70-110); LIPASE 10 U/L (22-51); MAGNESIUM 1.7 mg/dL (1.6-3.0); SODIUM 138 mmol/L (135-145)
[2016-09-12 08:18] LABS: URINE SOURCE CATH
[2016-09-12 08:24] LABS: URINE APPEARANCE CLEAR; URINE BILIRUBIN NEG (NEG); URINE BLOOD NEG (NEG); URINE COLOR YELLOW; URINE GLUCOSE NEG (NEG); URINE KETONE NEG (NEG); URINE LEUKOCYTE ESTERASE NEG (NEG); URINE NITRATE NEG (NEG); URINE PH 5.5 (5-8); URINE PROTEIN NEG (NEG); URINE SPECIFIC GRAVITY 1.013 (1.003-1.035); URINE UROBILINOGEN 0.2 MG/DL (NEG)
[2016-09-12] MEDS ORDERED: COMBIVENT U/D3 ML INH (11:06)
[2016-09-12] MEDS ORDERED: COGENTIN1 MG GT (11:07)
[2016-09-12] MEDS ORDERED: ISORDIL40 MG GT (11:07)
[2016-09-12] MEDS ORDERED: PANTOPRAZOLE GT (11:08)
[2016-09-12] MEDS ORDERED: BUMEX1 MG PO (11:09)
[2016-09-12] MEDS ORDERED: LOPRESSOR PO (11:10)
[2016-09-12] MEDS ORDERED: NORVASC10 MG GT (11:11)
[2016-09-12] MEDS ORDERED: NEURONTIN600 MG GT (11:12)
[2016-09-12] MEDS ORDERED: ATIVAN GT (11:14)
[2016-09-12] MEDS ORDERED: HYDROCODON-ACE1 EAC7 GT (11:14)
[2016-09-12] MEDS ORDERED: HALDOL GT (11:15)
[2016-09-12] MEDS ORDERED: TYL325 GT (11:17)
[2016-09-12] MEDS ORDERED: LEVEMIR SUBQ (11:18)
[2016-09-12] MEDS ORDERED: NOVOLOG100 U/ML SUBQ (11:18)
[2016-09-12 12:58] LABS: BASOPHIL% 0.5 % (0-2.5); EOSINOPHIL# 0.2 X10e3 (0-0.7); EOSINOPHIL% 2.1 % (0.0-7.0); HEMATOCRIT 37.5 % (35.0-45.0); HEMOGLOBIN 11.9 gm/dL (12.0-16.0); LYMPHOCYTE% 23.5 % (17.0-45.0); MEAN CELL VOLUME 76.9 FL (83-96); MEAN CORPUSCULAR HEMOGLOBIN 24.4 PG (28-34); MEAN CORPUSCULAR HGB CONC 31.7 g/dL (30-36); MEAN PLATELET VOLUME 9.1 FL (6.5-11.5); MONOCYTE# 0.7 X10e3 (0-1.0); MONOCYTE% 7.7 % (3.0-12.0); NEUTROPHIL# 5.7 X10e3 (1.5-7.1); NEUTROPHIL% 66.2 % (40-75); PLATELET COUNT 371 X10e3 (140-420); RED BLOOD COUNT 4.88 X10e (3.90-5.30); RED CELL DISTRIBUTION WIDTH 17.1 % (11.0-15.5); WHITE BLOOD COUNT 8.5 X10e3 (4.0-10.5)
[2016-09-12 12:59] LABS: DIFF IND NO
[2016-09-12 13:37] LABS: BLOOD UREA NITROGEN 11 mg/dL (9-23); BUN/CREATININE RATIO 13.75; CALCIUM SERUM 8.7 mg/dL (8.4-10.2); CARBON DIOXIDE 31 mmol/L (22-31); CHLORIDE 102 mmol/L (100-111); CREATININE SERUM 0.8 mg/dL (0.6-1.4); GLOM FILT RATE Estimated ABOVE60 mL/min (>60); GLUCOSE FASTING 240 mg/dL (70-110); MAGNESIUM 1.9 mg/dL (1.6-3.0); SODIUM 140 mmol/L (135-145)
[2016-09-12 13:38] LABS: POTASSIUM 3.1 mmol/L (3.5-5.1)
[2016-09-13 06:58] LABS: BASOPHIL% 0.3 % (0-2.5); EOSINOPHIL% 0.4 % (0.0-7.0); HEMATOCRIT 35.6 % (35.0-45.0); HEMOGLOBIN 11.3 gm/dL (12.0-16.0); LYMPHOCYTE# 1.7 X10e3 (1.0-3.5); LYMPHOCYTE% 17.5 % (17.0-45.0); MEAN CELL VOLUME 77.4 FL (83-96); MEAN CORPUSCULAR HEMOGLOBIN 24.6 PG (28-34); MEAN CORPUSCULAR HGB CONC 31.8 g/dL (30-36); MEAN PLATELET VOLUME 8.9 FL (6.5-11.5); MONOCYTE# 0.7 X10e3 (0-1.0); MONOCYTE% 7.4 % (3.0-12.0); NEUTROPHIL# 7.4 X10e3 (1.5-7.1); NEUTROPHIL% 74.4 % (40-75); PLATELET COUNT 281 X10e3 (140-420); WHITE BLOOD COUNT 9.9 X10e3 (4.0-10.5)
[2016-09-13 07:04] LABS: DIFF IND NO
[2016-09-13 07:43] LABS: BLOOD UREA NITROGEN 13 mg/dL (9-23); BUN/CREATININE RATIO 11.81; CALCIUM SERUM 9.4 mg/dL (8.4-10.2); CARBON DIOXIDE 27 mmol/L (22-31); CHLORIDE 104 mmol/L (100-111); CREATININE SERUM 1.1 mg/dL (0.6-1.4); GLOM FILT RATE Estimated ABOVE60 mL/min (>60); GLUCOSE FASTING 202 mg/dL (70-110); SODIUM 142 mmol/L (135-145)
[2016-09-13 07:45] LABS: POTASSIUM 2.9 mmol/L (3.5-5.1)
[2016-09-14 16:20] LABS: BLOOD UREA NITROGEN 5 mg/dL (9-23); BUN/CREATININE RATIO 6.25; CALCIUM SERUM 8.2 mg/dL (8.4-10.2); CARBON DIOXIDE 25 mmol/L (22-31); CHLORIDE 107 mmol/L (100-111); CREATININE SERUM 0.8 mg/dL (0.6-1.4); GLOM FILT RATE Estimated ABOVE60 mL/min (>60); GLUCOSE FASTING 324 mg/dL (70-110); PHOSPHOROUS 2.1 mg/dL (2.5-4.6); SODIUM 137 mmol/L (135-145)
[2016-09-15 08:40] LABS: HEMATOCRIT 35.4 % (35.0-45.0); MEAN CELL VOLUME 79.5 FL (83-96); MEAN CORPUSCULAR HEMOGLOBIN 24.8 PG (28-34); MEAN CORPUSCULAR HGB CONC 31.2 g/dL (30-36); MEAN PLATELET VOLUME 8.8 FL (6.5-11.5); RED BLOOD COUNT 4.46 X10e (3.90-5.30); RED CELL DISTRIBUTION WIDTH 17.3 % (11.0-15.5); WHITE BLOOD COUNT 9.2 X10e3 (4.0-10.5)
[2016-09-15 09:28] LABS: BLOOD UREA NITROGEN <5 mg/dL (9-23); BUN/CREATININE RATIO 7.14; CALCIUM SERUM 8.2 mg/dL (8.4-10.2); CARBON DIOXIDE 24 mmol/L (22-31); CHLORIDE 111 mmol/L (100-111); CREATININE SERUM 0.7 mg/dL (0.6-1.4); GLOM FILT RATE Estimated ABOVE60 mL/min (>60); GLUCOSE FASTING 97 mg/dL (70-110); MAGNESIUM 2.1 mg/dL (1.6-3.0); PHOSPHOROUS 2.8 mg/dL (2.5-4.6); POTASSIUM 4.9 mmol/L (3.5-5.1); SODIUM 138 mmol/L (135-145); TRIGLYCERIDES 99 mg/dL (10-160)
[2016-09-15 14:06] LABS: ARTERIAL BLD GAS O2 SATURATION 91.5 % (90.0-100.0); ARTERIAL BLOOD GAS CARBOXY HB 0.8 %sat (0.0-9.0); ARTERIAL BLOOD GAS HCO3 27.5 mmol/L; ARTERIAL BLOOD GAS MET HB 0.6 %sat (0.0-2.0); ARTERIAL BLOOD GAS PCO2 43.7 mmHg (35.0-45.0); ARTERIAL BLOOD GAS pH 7.407 (7.350-7.450)
[2016-09-15 14:07] LABS: ARTERIAL BLOOD GAS ALLEN TEST NORMAL; ARTERIAL BLOOD GAS ART SITE RIGHT RADIAL; ARTERIAL BLOOD GAS DELIVERY NASAL CANNULA; ARTERIAL BLOOD GAS PO2 64.4 mmHg (80.0-100); ARTERIAL DRAW? YES
[2016-09-17 13:45] LABS: BASOPHIL% 0.7 % (0-2.5); EOSINOPHIL# 0.2 X10e3 (0-0.7); EOSINOPHIL% 3.7 % (0.0-7.0); HEMATOCRIT 29.3 % (35.0-45.0); HEMOGLOBIN 9.3 gm/dL (12.0-16.0); LYMPHOCYTE# 2.2 X10e3 (1.0-3.5); LYMPHOCYTE% 35.7 % (17.0-45.0); MEAN CORPUSCULAR HEMOGLOBIN 24.8 PG (28-34); MEAN CORPUSCULAR HGB CONC 31.8 g/dL (30-36); MEAN PLATELET VOLUME 7.8 FL (6.5-11.5); MONOCYTE# 0.7 X10e3 (0-1.0); MONOCYTE% 11.2 % (3.0-12.0); NEUTROPHIL% 48.7 % (40-75); PLATELET COUNT 266 X10e3 (140-420); RED BLOOD COUNT 3.75 X10e (3.90-5.30); RED CELL DISTRIBUTION WIDTH 16.9 % (11.0-15.5); WHITE BLOOD COUNT 6.2 X10e3 (4.0-10.5)
[2016-09-17 13:48] LABS: DIFF IND NO
[2016-09-17 14:09] LABS: CALCIUM SERUM 8.4 mg/dL (8.4-10.2); CARBON DIOXIDE 29 mmol/L (22-31); CHLORIDE 104 mmol/L (100-111); CREATININE SERUM 0.7 mg/dL (0.6-1.4); GLOM FILT RATE Estimated ABOVE60 mL/min (>60); GLUCOSE FASTING 113 mg/dL (70-110); MAGNESIUM 1.8 mg/dL (1.6-3.0); POTASSIUM 3.3 mmol/L (3.5-5.1); SODIUM 139 mmol/L (135-145)
[2016-09-17 14:10] LABS: BLOOD UREA NITROGEN <5 mg/dL (9-23); BUN/CREATININE RATIO 7.14
[2016-09-18 08:13] LABS: CALCIUM SERUM 8.3 mg/dL (8.4-10.2); CARBON DIOXIDE 31 mmol/L (22-31); CHLORIDE 105 mmol/L (100-111); CREATININE SERUM 0.6 mg/dL (0.6-1.4); GLOM FILT RATE Estimated ABOVE60 mL/min (>60); GLUCOSE FASTING 112 mg/dL (70-110); MAGNESIUM 1.9 mg/dL (1.6-3.0); POTASSIUM 3.6 mmol/L (3.5-5.1); SODIUM 140 mmol/L (135-145)
[2016-09-18 08:15] LABS: BLOOD UREA NITROGEN <5 mg/dL (9-23); BUN/CREATININE RATIO 8.33
[2016-09-19 10:03] LABS: MAGNESIUM 1.6 mg/dL (1.6-3.0); POTASSIUM 3.4 mmol/L (3.5-5.1)
[2016-09-20 07:30] LABS: CALCIUM SERUM 8.3 mg/dL (8.4-10.2); CREATININE SERUM 0.7 mg/dL (0.6-1.4); GLOM FILT RATE Estimated 107.6 mL/min (>60); MAGNESIUM 1.8 mg/dL (1.6-3.0); POTASSIUM 3.5 mmol/L (3.5-5.1)
== END 2016-09-20 14:54 | DRG 388 ==
LOC: CED 23:56 → CEDOF 09-12 02:50 → C5B 09-12 13:53 → C2A 09-16 16:49
PROVIDERS: Emergency Medicine; Internal Medicine
PROC: 05H333Z Insertion of Infusion Device into Right Innominate Vein, Percutaneous Approach (ICD-10-PCS; 2016-09-13)
PROC: B51MYZA Fluoroscopy of Right Upper Extremity Veins using Other Contrast, Guidance (ICD-10-PCS; 2016-09-13)
PROC: B54MZZA Ultrasonography of Right Upper Extremity Veins, Guidance (ICD-10-PCS; 2016-09-13)
PROC: 02HV33Z Insertion of Infusion Device into Superior Vena Cava, Percutaneous Approach (ICD-10-PCS; principal; 2016-09-17)
PROC: B518YZA Fluoroscopy of Superior Vena Cava using Other Contrast, Guidance (ICD-10-PCS; 2016-09-17)
PROC: B548ZZA Ultrasonography of Superior Vena Cava, Guidance (ICD-10-PCS; 2016-09-17)
DX: K56.7 Ileus, unspecified (principal); J15.6 Pneumonia due to other Gram-negative bacteria; J96.01 Acute respiratory failure with hypoxia; J69.0 Pneumonitis due to inhalation of food and vomit; E44.0 Moderate protein-calorie malnutrition; Z93.0 Tracheostomy status; Z89.612 Acquired absence of left leg above knee; N39.0 Urinary tract infection, site not specified; R13.10 Dysphagia, unspecified; I10 Essential (primary) hypertension; M62.3 Immobility syndrome (paraplegic); E11.9 Type 2 diabetes mellitus without complications; Z86.73 Personal history of transient ischemic attack (TIA), and cerebral infarction without residual deficits; E78.5 Hyperlipidemia, unspecified; F41.9 Anxiety disorder, unspecified; F32.9 Major depressive disorder, single episode, unspecified; Z79.4 Long term (current) use of insulin; E87.6 Hypokalemia; Z91.11 Patient's noncompliance with dietary regimen; Z68.39 Body mass index [BMI] 39.0-39.9, adult; E66.01 Morbid (severe) obesity due to excess calories
CPT/HCPCS: 36415; 36600; 71010; 74000; 74176; 74270; 76937; 77001; 80048; 80053; 81003; 82553; 82803; 82947; 83690; 83735; 84100; 84132; 84478; 84484; 85025; 85027; 87086; 87493; 92526; 92610; 93005; 93306; 94640; 94760; 97163; 97167; 97530; 97535; 99291; C1751; C9113; G8978-GP; G8979-GP; G8980-GP; G8987-GO; G8988-GO; G8989-GO; G8996-GN; G8997-GN; G8998-GN; J0360; J1815; J2543; J2710; J3475; J3490

== ENCOUNTER 2016-11-07 08:46 | Inpatient (IN) | payer MEDICARE, OTHER ==
--- NOTE | ~2016-11-07 | CR72 ---
[facility] A Service of [facility] RADIOLOGY TEXT RESULTS PATIENT: ERIKA THOMPSON LOCATION: [place] [address] : 53 UNIT #: [id number] AGE: [address]: Sandi Beaulieu MD SEX: F ORDER DR: [id number] [facility] [address] [place] [address]. [place], [place] [address] [id number] MR#: [id number] Acc #: [id number] NAME: ERIKA THOMPSON : 1955 SEX: F STUDY DATE/TIME: 11/07/2016 9:43 UNIT: [facility] ROOM: STUDY DESCRIPTION: CR Chest Single View Portable Attending Physician: Yared Her M.D. Ordering Physician: Yared Her M.D. Primary Care Physician: Mari Betancourt M.D. MEDICAL IMAGING REPORT This report is preliminary unless electronic signature is present EXAM Portable chest 1-view, 11/07/2016 COMPARISON 09/15/2016 HISTORY Short of air for 1 day. FINDINGS Redemonstrated cardiomegaly. There is vascular congestion, though submaximal inspiration. There is no consolidation or effusion or pneumothorax. Dictated by... Faisal Ventura M.D. THIS IS AN ELECTRONICALLY VERIFIED REPORT Faisal Ventura M.D. at 11/07/2016 3:56 PM ASHLEY/yann TD: 11/07/2016 11:44 JOB #: [id number] MEDICAL IMAGING REPORT Page 1 of 1 COPY
--- NOTE | ~2016-11-07 | CT116 ---
[facility] A Service of [facility] RADIOLOGY TEXT RESULTS PATIENT: ERIKA THOMPSON LOCATION: [facility] [id number] : 53 UNIT #: [id number] AGE: [address]: Lucía Lema MD SEX: F ORDER DR: [id number] [facility] [address] [place], [place] [address] [id number] I MR#: [id number] Acc #: [id number] NAME: ERIKA THOMPSON. : 1955 SEX: F STUDY DATE/TIME: 11/09/2016 9:00 UNIT: [facility] ROOM: [facility] STUDY DESCRIPTION: CT Soft Tissue Neck Wo Cont Attending Physician: Lucía Lema M.D. Ordering Physician: Steve Heath M.D. Primary Care Physician: Mari Betancourt M.D. MEDICAL IMAGING REPORT This report is preliminary unless electronic signature is present EXAM Soft tissue neck CT without contrast. INDICATIONS Tracheostomy tube fell out 2 days ago. Shortness of breath since then. TECHNIQUE CT of the soft tissue structures of the neck was performed. No contrast administered. Coronal and sagittal reformatted images were obtained. This CT exam was performed with one or more of the following radiation dose reduction techniques: automatic exposure control, adjustment of mA and/or kV according to patient size, and iterative reconstruction. COMPARISON No comparisons. FINDINGS The study is limited due to the lack of IV contrast. The nasopharyngeal and oropharyngeal structures appear unremarkable. There are some probable secretions noted in the epiglottic region. There is some narrowing of the trachea with some soft tissue lobulation anteriorly which is probably the site of the previous tracheostomy insertion. The airway is otherwise patent without any significant narrowing. There is no suspicious lymphadenopathy. The major salivary glands are unremarkable. There is some minimal mucosal thickening in the inferior right maxillary sinus. Bone windows demonstrate ossification of the stylohyoid ligament on the right. IMPRESSION 1. There is some narrowing of the upper trachea with some soft tissue lobulation anteriorly. This is probably the site of the previous tracheostomy. The airway is otherwise patent without any significant narrowing. STS. [facility] A Service of [facility] RADIOLOGY TEXT RESULTS PATIENT: ERIKA THOMPSON LOCATION: [place] [address] : 53 UNIT #: [id number] AGE: [address]: Lucía Lema MD SEX: F ORDER DR: 2. Additional findings as described. Dictated by... Chacorta Godinez M.D. THIS IS AN ELECTRONICALLY VERIFIED REPORT Chacorta Godinez M.D. at 11/10/2016 3:47 PM LEE/harriett TD: 11/09/2016 20:51 JOB #: [id number] MEDICAL IMAGING REPORT Page 1 of 1 COPY
--- NOTE | ~2016-11-07 | EKG ---
PATIENT: ERIKA THOMPSON UNIT #: [id number] Ventricular Rate: 82 BPM Atrial Rate: 82 BPM P-R Interval: 226 ms QRS Duration: 120 ms Q-T Interval: 420 ms QTC Calculation(Bezet): 490 ms P [place]: 34 degrees Calculated R [place]: -13 degrees Calculated T [place]: 20 degrees Diagnosis Line: Sinus rhythm with 1st degree A-V block Diagnosis Line: Left ventricular hypertrophy with QRS widening Diagnosis Line: Inferior infarct , age undetermined Diagnosis Line: Abnormal ECG Diagnosis Line: When compared with ECG of 11-SEP-2016 22:45, Diagnosis Line: Fusion complexes are no longer Present Diagnosis Line: Premature ventricular complexes are no longer Diagnosis Line: Present Diagnosis Line: Inferior infarct is now Present Diagnosis Line: Nonspecific T wave abnormality, worse in Lateral Diagnosis Line: leads Diagnosis Line: Confirmed by NIXON NICHOLS MD ([id number]) on 11/08/2016 Diagnosis Line: 8:02:02 PM INTERPRETING MD: MAGDALENA LOO
--- NOTE | ~2016-11-07 | CT57 ---
[facility] A Service [facility] RADIOLOGY TEXT RESULTS PATIENT: ERIKA THOMPSON LOCATION: [facility] 5710-28 : 54 UNIT #: [id number] AGE: [address]: Lucía Lema MD SEX: F ORDER DR: [id number] [facility] [address] [place], [place] [address] [id number] I MR#: [id number] Acc #: [id number] NAME: ERIKA THOMPSON. : 1955 SEX: F STUDY DATE/TIME: 11/09/2016 9:02 UNIT: [facility] ROOM: [facility] STUDY DESCRIPTION: CT Chest Wo Cont Attending Physician: Lucía Lema M.D. Ordering Physician: Steve Heath M.D. Primary Care Physician: Mari Betancourt M.D. MEDICAL IMAGING REPORT This report is preliminary unless electronic signature is present EXAM CT of the chest without contrast. INDICATION Cough for [address] scan of the chest was performed without contrast. Coronal and sagittal reformatted images were obtained. This CT exam was performed with one or more of the following radiation dose reduction techniques: automatic exposure control, adjustment of mA and/or kV according to patient size, and iterative reconstruction. COMPARISON There are no comparison chest CTs available. The study is compared with CT of the abdomen and pelvis from 11/09/2016. FINDINGS There is no acute airspace consolidation. There is some atelectasis within the dependent portions of the lower lobes. There are bilateral granulomatous calcifications. Cardiomegaly. Calcified mediastinal and hilar lymph nodes. No suspicious lymphadenopathy. Coronary artery calcifications. Limited imaging of the upper abdomen demonstrates a partially imaged gastrostomy tube. Bone windows are unremarkable. IMPRESSION 1. There is no acute-appearing infiltrate. 2. There is some dependent atelectasis within the lower lobes. Dictated by... [facility] A Service [facility] RADIOLOGY TEXT RESULTS PATIENT: ERIKA THOMPSON LOCATION: [facility] : 54 UNIT #: [id number] AGE: [address]: Lucía Lema MD SEX: F ORDER DR: Chacorta Godinez M.D. THIS IS AN ELECTRONICALLY VERIFIED REPORT Chacorta Godinez M.D. at 11/10/2016 3:47 PM LEE/harriett TD: 11/09/2016 20:11 JOB #: [id number] MEDICAL IMAGING REPORT Page 1 of 1 COPY
--- NOTE | ~2016-11-07 | DS ---
Unit #: [id number] #: [id number] Patient: ERIKA THOMPSON [id number] [address] [place], [place] [address] [id number] I MR#: [id number] NAME: ERIKA THOMPSON. ROOM: 575 Age: 61 Sex: F Admission Date: 11/09/2016 : 1955 Discharge Date: 11/10/2016 Attending Physician: Lucía Lmea M.D. Primary Care Physician: Mari Betancourt M.D. DISCHARGE SUMMARY REASON FOR ADMISSION Trach malfunction. HISTORY OF PRESENT ILLNESS/HOSPITAL COURSE The patient is a very pleasant 61-year-old female with underlying history of chronic respiratory failure, aspiration pneumonia, chronic dysphagia, hypertension, hyperlipidemia, diabetes, morbid obesity, chronic immobility syndrome, depression, prior history of CVA, underlying dementia likely mixed etiology secondary to both vascular as well as Alzheimer's, who presented apparently secondary to trach malfunction. She is routinely followed by Dr. Heath of pulmonary services. Dr. Heath saw and evaluated the patient. The patient did undergo routine laboratory studies including blood cultures which were also ascertained. Initial concern for possible aspiration pneumonia was made but patient underwent CT chest noncontrast which did not show any acute infiltrate. The patient also underwent CT soft tissue neck which was reviewed by Dr. Heath and he felt as though patient was stable for discharge. She will be reverted back to her routine medications with no new changes. Overall, her prognosis is guarded/poor. FINAL DISCHARGE DIAGNOSES 1. Trach malfunction, now corrected. Followed by Dr. Heath of pulmonary services. 2. Prior history of aspiration pneumonia. 3. Recent hospital admission from 09/12 to 09/19/2016 secondary to ileus/acute hypoxic respiratory failure. 4. Chronic respiratory failure with tracheostomy present. 5. Chronic dysphagia with PEG tube placement. 6. Prior history of cerebrovascular accident. 7. Chronic immobility syndrome. 8. Avendano palsy. 9. Diabetes. 10. Hypertension. 11. Hyperlipidemia. 12. Anxiety. 13. Depression. 14. Severe morbid obesity. 15. Dementia, multifactorial, likely secondary to vascular and/or Alzheimer's. 16. Longstanding history of noncompliance. Unit #: [id number] #: [id number] Patient: ERIKA THOMPSON FINAL DISCHARGE MEDICATIONS 1. DuoNeb aerosol solution q.6 h. 2. Tylenol 650 mg q.6 h. p.r.n. 3. Cogentin 1 mg daily. 4. Haldol 5 mg b.i.d. 5. Ativan 1 mg G-tube b.i.d. p.r.n. 6. Norvasc 10 mg daily. 7. Lopressor 50 mg PEG b.i.d. 8. Bumex 1 mg b.i.d. 9. Levemir 15 units subcu h.s. 10. NovoLog low-dose sliding scale. Accu-Cheks q.6 h. 11. Lortab 5/325 one tablet G-tube t.i.d. p.r.n. 12. Protonix 40 mg G-tube daily. 13. Klor-Con 20 mEq daily. 14. Isosorbide 40 mg t.i.d. DISCHARGE DISPOSITION [place]. LONG-TERM PROGNOSIS Guarded/poor. Dictated by... Fan Gamez/sherrie TD: 11/10/2016 13:38 JOB #: [id number] DISCHARGE SUMMARY Page 1 of 1 X Deandra Mercedes MD X DISCHARGE SUMMARY
--- NOTE | ~2016-11-07 | CO ---
Unit #: [id number] #: [id number] Patient: ERIKA MARIN [id number] [address] [address] [id number] I MR#: [id number] NAME: ERIKA MARIN. ROOM: 575 Age: 61 Sex: F Admission Date: 11/09/2016 : 1955 Attending Physician: Lucía Lema M.D. Primary Care Physician: Mari Betancourt M.D. Consultation Date: 11/08/2016 CONSULTATION REPORT REASON FOR CONSULTATION Depression, psychosis. HISTORY OF PRESENT ILLNESS Ms. Erika Marin is a 61-year-old female seen in room 575, bed 1 on 11/08/[address] [facility]. The patient was cooperative during interview. Poor articulation. The patient has a history of chronic respiratory failure with a tracheostomy and a PEG tube placement. The patient was referred to [facility] due to (1) placement from [place]. The patient has a history of chronic respiratory failure, aspiration pneumonia, chronic dysphagia, hypertension, cerebrovascular accident with chronic immobility, depression and morbid obesity. The patient did not show any agitation. She denied any suicidal or homicidal ideation. She reports the medication is helping her. The patient denies any problem with her breathing at this time. The patient's vital signs are 98.1, 65, 18, 142/68, oxygen saturation 94%. Weight 102.5 kg. PAST PSYCHIATRIC HISTORY Remarkable for history of depression, psychosis, currently on medication for that. MEDICAL HISTORY 1. History of chronic immobility. 2. Chronic respiratory failure with a tracheostomy and PEG tube placement. 3. History of cerebrovascular accident. 4. Avendano palsy. 5. Diabetes. 6. Hypertension. 7. Hyperlipidemia. 8. Anxiety/depression. MEDICATION HISTORY 1. The patient is on duo-neb. 2. Tylenol. 3. Cogentin. 4. Haldol. 5. Ativan. 6. Metoprolol. 7. Bumex. 8. Levemir, sliding scale. 9. [place]. 10. Protonix. Unit #: [id number] #: [id number] Patient: ERIKA MARIN 11. Isordil 12. [facility]. SOCIAL HISTORY The patient has a poor support system. The patient is the resident of a [facility]. No history of abuse. No history of any substance abuse. REVIEW OF SYSTEMS Complete review of systems is unremarkable except as mentioned above. MENTAL STATUS EXAMINATION VITAL SIGNS: Please see above. GENERAL APPEARANCE: The patient is dressed casually in hospital attire. Somewhat agitated. Confused relative to situation. Guarded. Attention span and concentration poor. Speech rapid. Oriented to self and place. Mood and affect labile. Thought process circumstantial. Thought content guarded, paranoid. Denied any auditory or visual hallucinations. No suicidal or homicidal ideation. Recent and remote memory fair to slightly impaired. Language fair. Fund of knowledge impaired. Insight and judgment impaired. DIAGNOSES PSYCHIATRIC: Major depressive disorder, recurrent, moderate. F33.2. Psychosis, NOS. F49.0. SECONDARY DIAGNOSIS: Deferred. MEDICAL DIAGNOSIS: Please refer to history and physical. STRESSORS: Psychosocial stressors. ASSESSMENT/PLAN 1. Supportive psychotherapy, psychoeducation provided to the patient. 2. Educated about medication side effects and course and prognosis of illness. 3. Advised to continue with current medication. The patient is on Ativan 1 mg 1.6 h. p.r.n. for anxiety and haloperidol 5 mg b.i.d. p.r.n. psychosis and agitation. 4. Plan to consider to SSRI for the patient, such as Cymbalta. Possibly also possibly considering low-dose of Haldol or Risperdal on a scheduled basis. 5. Will continue to follow. Please feel free to call if any questions. Telephone number [phone]. Dictated by... Fan Washington TD: 11/13/2016 10:58 JOB #: [id number] Unit #: [id number] #: [id number] Patient: ERIKA MARIN CONSULTATION REPORT Page 1 of 1 X Rosalio German MD X CONSULTATION REPORT
--- NOTE | ~2016-11-07 | BMI ---
[facility] Nutrition Therapy DATE: 11/08/16 Patient: ERIKA THOMPSON Physician: MARY Address: [facility] Room/Bed: [address] [place] [address], Zip: [place] [address] Admit Date: 11/07/16 Date of : 53 Height: 5 5 Weight: 218 99 HIGH BMI NOTE: DX: 61 yo female admitted for trachostomy malfunction ANTHROPOMETRICS: Ht: 5'5" Wt: 131.4 kg (289#) BMI: 48.2 DIET: Purred + honey thick liquids INTERVENTION: 1. Restricted diet RECOMMENDATIONS: 1. Please add healthy heart + consistent carb diet restriction to promote gradual weight loss towards healthy BMI. RD will follow hospital course. Respectfully, Niharika Aj, Processing Rep Cassandra Blas MS, RD, LD Food and Nutritional Services [facility] [place] [facility] cc: client file
--- NOTE | ~2016-11-07 | HP ---
Unit #: [id number] #: [id number] Patient: ERIKA THOMPSON [id number] [place] [address] [facility]. [place], [place] [address] [id number] MR#: [id number] NAME: ERIKA THOMPSON ROOM: Age: 61 Sex: F Admission Date: 11/07/2016 : 1955 Attending Physician: Yared Her M.D. Primary Care Physician: Mari Betancourt M.D. HISTORY AND PHYSICAL CHIEF COMPLAINT Trach replacement from [place]. HISTORY OF PRESENT ILLNESS The patient is a 61-year-old female with a past medical history of chronic respiratory failure, aspiration pneumonia, chronic dysphagia, hypertension, hyperlipidemia, diabetes, cerebrovascular accident with chronic immobility, depression, morbid obesity, who presented to the emergency department from the detention for evaluation of the above. History is obtained from chart review and discussion with the ER staff, as well as from the patient. Apparently, the patient's tracheostomy fell out this morning. The patient does not want the trach replaced. She has been seen by Dr. Heath. She is oriented x3. However, she denies having a tracheostomy. she states that the tracheostomy was actually a "door handle" that was attached to her neck with a string. She denies that it was helping her to breathe. In the emergency department, an ABG showed pH of 7.46, pCO2 of 41.4, pO2 of 54.5 on room air. Chest x-ray shows cardiomegaly. She is being admitted to [facility] for evaluation and further treatment. PAST MEDICAL HISTORY 1. Admission to [facility], September 12 through September 19, 2016, for ileus and aspiration pneumonia. 2. Chronic immobility. 3. Chronic respiratory failure with tracheostomy and PEG tube placement. 4. History of cerebrovascular accident. 5. Avendano's palsy. 6. Diabetes. 7. Hypertension. 8. Hyperlipidemia. 9. Anxiety and depression. PAST SURGICAL HISTORY 1. Left ooxix-wfr-rpdk amputation. 2. Right hand surgery. 3. Appendectomy. 4. Tracheostomy. 5. PEG tube placement. SOCIAL HISTORY The patient is at a detention. There is no tobacco or alcohol use. Unit #: [id number] #: [id number] Patient: ERIKA THOMPSON Her CODE status is a FULL CODE. FAMILY HISTORY Unobtainable. ALLERGIES Neomycin, Bacitracin, clotrimazole, miconazole, polymyxin B. HOME MEDICATIONS Per the discharge summary from September 19, 2016 include: 1. DuoNeb. 2. Tylenol. 3. Cogentin. 4. Haldol. 5. Ativan. 6. Metoprolol. 7. Bumex . 8. Levemir. 9. Sliding scale. 10. [place]. 11. Protonix. 12. Isordil. 13. Norvasc. Home medications will need to be reviewed and verified. REVIEW OF SYSTEMS A complete review of systems is somewhat limited from the patient but negative except as indicated in the HPI. The patient, per the discharge summary from August, should be on a pureed diet with honey-thickened liquids, constant carb, Healthy Heart. PHYSICAL EXAMINATION GENERAL APPEARANCE: The patient is an -[place] female who is awake and alert. VITAL SIGNS: Temperature 98. Pulse 100. Respirations 17. Blood pressure 170/90. Oxygen saturation 96% on room air. HEENT: The head is atraumatic. Mucous membranes are moist. NECK: Stoma consistent with prior tracheostomy. CARDIOVASCULAR: Regular rate and rhythm. LUNGS: Coarse breath sounds. Breathing is not currently labored. ABDOMEN: Soft, nontender with bowel sounds present in all four quadrants. A PEG tube is in place. EXTREMITIES: The patient has a prior left sibau-iqh-rbls amputation. The stump is clean and dry. NEUROLOGIC: The patient is oriented to month and year. However, she demonstrates poor insight and judgment, seems confused about the situation. PSYCHIATRIC: The patient is somewhat agitated. She is refusing tracheostomy. SKIN: Of examined areas is warm and dry. DIAGNOSTIC STUDIES LABORATORY: Arterial blood gas shows pH of 7.46, pCO2 41.4, pO2 54.5 on room air. IMAGING: Chest x-ray shows cardiomegaly with vascular congestion. ASSESSMENT Unit #: [id number] #: [id number] Patient: ERIKA THOMPSON The patient is a 61-year-old female with: 1. Tracheostomy malfunction. 2. Chronic respiratory failure. 3. History of aspiration pneumonia. 4. Chronic dysphagia status post PEG tube placement. 5. Hypertension. 6. Hyperlipidemia. 7. Diabetes. 8. History of cerebrovascular accident 9. Chronic immobility. 10. Depression. 11. Morbid obesity with a BMI of 48. PLAN 1. Admit for observation to intermediate level. 2. NPO. 3. Continuous pulse ox. 4. Consult Dr. Heath regarding tracheostomy malfunction. 5. Consult Dr. German regarding decisional capacity. 6. Check labs. 7. Serial cardiac enzymes and EKG. 8. Hemoglobin A1C. 9. Low dose sliding scale insulin with Accu-Cheks. 10. Repeat labs in the morning. 11. Additional workup and consultants based on above. 12. Regarding CODE status, the patient is a FULL CODE per detention documentation. Dictated by Fan Lorenzo/tatyana TD: 11/07/2016 12:48 JOB #: [id number] HISTORY AND PHYSICAL Page 1 of 1 X Sandi Beaulieu MD X HISTORY AND PHYSICAL
--- NOTE | ~2016-11-07 | CO ---
Unit #: [id number] #: [id number] Patient: ERIKA MARIN [id number] [address] [place], [place] [address] [id number] MR#: [id number] NAME: ERIKA MARIN. ROOM: 575 Age: 61 Sex: F Admission Date: 11/09/2016 : 1955 Attending Physician: Lucía Lema M.D. Primary Care Physician: Mari Betancourt M.D. Consultation Date: 11/09/2016 CONSULTATION REPORT REASON FOR CONSULTATION Followup. DISCUSSION Ms. Erika Marin is a 61-year-old female, seen in room 575 bed 1 on 11/09/2016. The patient has a sitter as she made comment about harming herself. The patient denied any thoughts of harming self or others. Reports that she does want to go back. She does not like it here. The patient was able to contract for safety. Sleeping good. Compliant with medication. No agitation, but mood was irritable. The patient's vital signs; temperature 97.4, pulse 62, 16, blood pressure 110/65, oxygen saturations 94%. MENTAL STATUS EXAMINATION General appearance; the patient dressed casually in hospital attire, lying comfortably in bed. Vital signs, please see above. Attention span and concentration, fair. Speech, poor articulation. Oriented in self and place. Mood and affect, labile. Thought process, coherent. Thought content, the patient denied any thoughts of harming self or others, but somewhat guarded. Recent and remote memory, fair to slightly impaired. Language, fair. Fund of knowledge, fair. Insight and judgment, fair to slightly impaired. DIAGNOSES Psychiatric: Major depressive disorder, recurrent, moderate, F33.2. ASSESSMENT AND PLAN 1. Supportive psychotherapy and psychoeducation provided to the patient. 2. Educated about benefits and side effects of medication and course and prognosis of illness. 3. Recommending at this time to discontinue sitter at this time as the patient is able to contract for safety. The patient has p.r.n. Ativan 1 mg q.6 hours p.r.n. for anxiety and haloperidol 5 mg b.i.d. p.r.n. for agitation, advised to use as needed. Please feel free to call if any questions telephone #[phone]. Dictated by... Fan Washington/damian TD: 11/10/2016 00:34 JOB #: [id number] Unit #: [id number] #: [id number] Patient: ERIKA MARIN CONSULTATION REPORT Page 1 of 1 X Rosalio German MD X CONSULTATION REPORT
[~2016-11-07 08:46] MED LIST changes: +ATIVAN GT; +BUMEX1 MG PO; +COGENTIN1 MG GT; +COMBIVENT U/D3 ML INH; +HALDOL GT; +HYDROCODON-ACE1 EAC7 GT; +ISORDIL40 MG GT; +LEVEMIR SUBQ; +NEURONTIN600 MG GT; +NORVASC10 MG GT; +NOVOLOG100 U/ML SUBQ; +PANTOPRAZOLE GT; +TYL325 GT
[2016-11-07 11:33] LABS: ARTERIAL BLD GAS O2 SATURATION 88.4 % (90.0-100.0); ARTERIAL BLOOD GAS CARBOXY HB 1.1 %sat (0.0-9.0); ARTERIAL BLOOD GAS HCO3 29.5 mmol/L; ARTERIAL BLOOD GAS MET HB 0.5 %sat (0.0-2.0); ARTERIAL BLOOD GAS PCO2 41.4 mmHg (35.0-45.0)
[2016-11-07 11:34] LABS: ARTERIAL BLOOD GAS ART SITE RIGHT BRACHIAL; ARTERIAL BLOOD GAS PO2 54.5 mmHg (80.0-100); ARTERIAL DRAW? YES
[2016-11-07] MEDS ORDERED: POTASSIUM CHLO10 MEQ PO (12:50)
[2016-11-07 13:15] LABS: BASOPHIL% 0.5 % (0-2.5); EOSINOPHIL# 0.2 X10e3 (0-0.7); EOSINOPHIL% 2.3 % (0.0-7.0); HEMOGLOBIN 12.2 gm/dL (12.0-16.0); LYMPHOCYTE# 2.6 X10e3 (1.0-3.5); LYMPHOCYTE% 30.5 % (17.0-45.0); MEAN CORPUSCULAR HEMOGLOBIN 24.5 PG (28-34); MEAN CORPUSCULAR HGB CONC 32.2 g/dL (30-36); MEAN PLATELET VOLUME 8.9 FL (6.5-11.5); MONOCYTE# 0.7 X10e3 (0-1.0); MONOCYTE% 7.7 % (3.0-12.0); PLATELET COUNT 312 X10e3 (140-420); RED BLOOD COUNT 4.99 X10e (3.90-5.30); RED CELL DISTRIBUTION WIDTH 15.8 % (11.0-15.5); WHITE BLOOD COUNT 8.5 X10e3 (4.0-10.5)
[2016-11-07 13:17] LABS: DIFF IND NO
[2016-11-07 13:43] LABS: CK TOTAL 34 IU/L (26-140)
[2016-11-07 14:06] LABS: BUN/CREATININE RATIO 16.25; CALCIUM SERUM 9.4 mg/dL (8.4-10.2); CREATININE SERUM 0.8 mg/dL (0.6-1.4); GLOM FILT RATE Estimated 91.7 mL/min (>60); POTASSIUM 3.2 mmol/L (3.5-5.1)
[2016-11-08 06:23] LABS: ALBUMIN SERUM 3.2 g/dL (3.5-5.0); BILIRUBIN,TOTAL 0.4 mg/dL (0.2-2.0); BUN/CREATININE RATIO 12.85; CREATININE SERUM 0.7 mg/dL (0.6-1.4); GLOM FILT RATE Estimated 107.6 mL/min (>60); MAGNESIUM 1.8 mg/dL (1.6-3.0); POTASSIUM 3.3 mmol/L (3.5-5.1); PROTEIN TOTAL SERUM 7.7 g/dL (6.0-8.3)
== END 2016-11-10 17:54 | DRG 205 ==
LOC: CED 08:46 → C5C 12:35 → CED 12:35 → CEDOF 12:35 → CED 12:45 → CEDOF 13:50 → C5C 13:50 → CEDOF 11-09 10:57 → CED 11-09 10:57 → C5C 11-09 10:57
PROVIDERS: Emergency Medicine; Family Medicine
DX: J95.03 Malfunction of tracheostomy stoma (principal); J96.21 Acute and chronic respiratory failure with hypoxia; F33.2 Major depressive disorder, recurrent severe without psychotic features; R13.10 Dysphagia, unspecified; Z68.42 Body mass index [BMI] 45.0-49.9, adult; E11.65 Type 2 diabetes mellitus with hyperglycemia; G30.9 Alzheimer's disease, unspecified; F01.50 Vascular dementia, unspecified severity, without behavioral disturbance, psychotic disturbance, mood disturbance, and anxiety; Z89.612 Acquired absence of left leg above knee; M62.3 Immobility syndrome (paraplegic); Z86.73 Personal history of transient ischemic attack (TIA), and cerebral infarction without residual deficits; I10 Essential (primary) hypertension; E78.5 Hyperlipidemia, unspecified; F41.9 Anxiety disorder, unspecified; Z79.4 Long term (current) use of insulin; E66.01 Morbid (severe) obesity due to excess calories; E87.6 Hypokalemia; G51.0 Bell's palsy; F02.80 Dementia in other diseases classified elsewhere, unspecified severity, without behavioral disturbance, psychotic disturbance, mood disturbance, and anxiety; Z91.19 Patient's noncompliance with other medical treatment and regimen
CPT/HCPCS: 36415; 36600; 70490; 71010; 71250; 80048; 80053; 82550; 82803; 82947; 83036; 83735; 84484; 85025; 85730; 92610; 93005; 94760; 94761; 99285; G8996-GN; G8997-GN; G8998-GN; J1815; J2060; J3475

== ENCOUNTER 2017-02-22 21:12 | Inpatient (IN) | payer MEDICARE, OTHER ==
[~2017-02-22] VITALS: Ht 165.1 cm; Wt 102.5 kg
--- NOTE | ~2017-02-22 | DS ---
Unit #: [id number] #: [id number] Patient: ERIKA THOMPSON [id number] [address] [place], [place] [address] [id number] I MR#: [id number] NAME: ERIKA THOMPSON ROOM: [facility] Age: 61 Sex: F Admission Date: 02/23/2017 : 1955 Discharge Date: 02/25/2017 Attending Physician: Deandra Mercedes M.D. Primary Care Physician: Mari Betancourt M.D. DISCHARGE SUMMARY REASON FOR ADMISSION PEG tube malfunction. HISTORY OF PRESENT ILLNESS/HOSPITAL COURSE Please see H and P for complete details of initial part of hospital stay. Consultation was placed to Dr. Resendiz for evaluation. Patient underwent PEG tube removal, as well as placement of a new PEG tube. Postoperatively she, otherwise, did well. Tube feeds were resumed. Please note nutrition evaluation as follows. Enteral nutrition was recommended. Glucerna 1.5 at 15 mL x24 hours to increase by 10 mL q.8 hours as tolerated to a goal of 45 mL per hour. Patient became agitated and stated that she no longer required a PEG tube, and, therefore, she stated that she wanted to try to swallow. We placed consultation to speech therapy service who recommended a video function swallow evaluation; however, when she arrived, she stated that she would not like to do this examination and she wanted to go back home. Therefore, at this point in time secondary to PEG tube being corrected, the patient is now stable for transfer back to prison. I will leave it to the prison physician to ultimately decide about video function swallow evaluation and/or further evaluation in regard to possibly resuming a p.o. diet and/or discontinuing her PEG tube. At this point in time patient is clinically stable for transfer back to prison. FINAL DISCHARGE DIAGNOSES 1. Percutaneous endoscopic gastrostomy tube malfunction, now resolved. 2. Prior history of chronic respiratory failure with tracheostomy, now closed. 3. Ileus, likely secondary to narcotic dependence, chronic. 4. Prior history of aspiration pneumonia. 5. Chronic immobility syndrome. 6. Prior history of cerebrovascular accident. 7. Avendano palsy. 8. Diabetes. 9. Hypertension. 10. Hyperlipidemia. 11. Anxiety. 12. Depression. 13. Severe morbid obesity. 14. Dementia, multifactorial in origin. 15. Longstanding history of noncompliance. FINAL DISCHARGE MEDICATIONS Unit #: [id number] #: [id number] Patient: ERIKA THOMPSON 1. DuoNeb aerosol solution q.6 hours p.r.n. 2. Tylenol 650 mg q.6 p.r.n. 3. Cogentin 1 mg daily. 4. Ativan 1 mg b.i.d. p.r.n. 5. Norvasc 10 mg daily. 6. Lopressor 50 mg b.i.d. 7. Bumex 1 mg b.i.d. 8. Levemir 30 units subcu q.h.s. 9. NovoLog 8 units per protocol while on tube feeds. 10. Potassium chloride 20 mEq daily. 11. Isordil 40 mg t.i.d. 12. Pantoprazole 20 mL G-tube daily. DISCHARGE CONDITION Stable. DISCHARGE DISPOSITION half-way for ongoing care. Dictated by... Fan Gamez/helder TD: 02/25/2017 14:23 JOB #: [id number] DISCHARGE SUMMARY Page 1 of 1 X Deandra Mercedes MD X DISCHARGE SUMMARY
--- NOTE | ~2017-02-22 | CR4 ---
[facility] A Service of [facility] RADIOLOGY TEXT RESULTS PATIENT: ERIKA THOMPSON LOCATION: [place] [address] : [birth year] UNIT #: [id number] AGE: [address]: Deandra Mercedes MD SEX: F ORDER DR: [id number] [facility] [address] [place], [place] [address] [id number] I MR#: [id number] Acc #: [id number] NAME: ERIKA THOMPSON : 1955 SEX: F STUDY DATE/TIME: 02/25/2017 10:37 UNIT: [facility] ROOM: [facility] STUDY DESCRIPTION: CR Abdomen Flat Upright or Dec Attending Physician: Deandra Mercedes M.D. Ordering Physician: Roosevelt Resendiz M.D. Primary Care Physician: Mari Betancourt M.D. MEDICAL IMAGING REPORT This report is preliminary unless electronic signature is present EXAM Abdomen flat and upright, 3 views, 02/25/2017. HISTORY Abdomen pain for 5 days and small bowel obstruction. 3 views of the abdomen show moderate gaseous distension of the colon, likely reflecting ileus. No free air is identified. There are no abnormal abdominal calcifications. The bony structures are normal. Cardiomegaly is stable compared with 02/22/2017. IMPRESSION 1. Diffuse gaseous distension of the colon, likely representing ileus. No free air is identified. 2. Mild cardiac enlargement. Dictated by... Rod Malone M.D. THIS IS AN ELECTRONICALLY VERIFIED REPORT Rod Malone M.D. at 02/26/2017 7:47 AM CARYL/gamaliel TD: 02/25/2017 16:08 JOB #: [id number] MEDICAL IMAGING REPORT Page 1 of 1 COPY
--- NOTE | ~2017-02-22 | A ---
[facility] Nutrition Therapy DATE: 02/24/17 Patient: ERIKA THOMPSON Physician: SILVINA Address: [facility] Room/Bed: [address] [place] [address], Zip: [place] [address] Admit Date: 02/23/17 Date of : 53 Height: 5 5 Weight: 225 102.5 NUTRITIONAL ASSESSMENT: REASON: Consult for enteral nutrition, Dx 61 yo female admitted for malfunctioning G tube PMH: H/o tracheostomy, chronic dysphagia s/p PEG, chronic immobility syndrome, dementia, DM, HTN, HLD, aspiration PNA, ileus, obesity, anxiety Anthropometrics: Ht: 5'5" Wt: 102.5 kg BMI: 37.6 Labs: Glucose POC 163 (from yesterday), no other updated nutrition-related labs from today Meds: MOM, miralax, bumex, novolog, MgSO4, KCl, NaCl I/O & Bowel function: 310/9, last BM 02/23 Skin Integrity: Left AKA Dry skin- generalized Flakey cracked open area- right heel/ under breast folds Edema: none noted Estimated Nutrition Needs: 5661-3474 kcals (15-20 kcals/kg) 82-112 grams protein (0.8-1.1 grams/kg) Diet: NPO [place] nutrition regimen: Vital 1.5 @ 75 mL/hr x 12 hrs from 6P-6A (1350 kcals/ 61 grams protein/ 684 mL free H20) Pureed diet with honey thick liquids Assessment: Chart reviewed, events noted. Pt admitted for a malfunctioning PEG tube now s/p EGD and PEG replacement. MD noting possible ileus, but doubtful obstruction with bowel regimen started with MOM. MD ordered to start tube feeds and consulted RD to provide recommendations. RN reports the pt has been combative today, and is angry that she cannot take nutrition PO. Pt has been NPO (without EN) x 2-3 days. Per information in chart, the pt was on a pureed diet + nocturnal EN at the [place] (regimen noted above). Per previous admission discharge summary from August 2016, notes that the pt should be NPO; however, she is unwilling to comply, so she was placed on pureed diet with honey thick liquids. RD spoke with [employer] who just saw the pt. [employer] recommends that the pt remain NPO and participate in a video [employer] evaluation. Please note the pt is on Vital 1.5 at the [place] and RD now [facility] Nutrition Therapy DATE: 02/24/17 Patient: ERIKA THOMPSON Physician: SILVINA Address: [facility] Room/Bed: [address] [place] [address], Zip: [place] [address] Admit Date: 02/23/17 Date of : [birth year] Height: 5 5 Weight: 225 102.5 recommending to change the enteral formula, as this pt likely does not require a semi-elemental formula. Dx: Inadequate oral intake RT dysphagia AEB [employer] eval, NPO status. Intervention: 1. Enteral nutrition with Glucerna 1.5 2. [employer]/ video eval Monitoring, Evaluation and Goals: 1. Enteral nutrition; initiate, tolerate 2. Improve/ monitor labs; glucose 3. Skin; prevent breakdown 4. GI; promote regular GI function Recommendations: 1. Once medically feasible, start enteral nutrition with Glucerna 1.5 @ 15 mL/hr x 24 hrs. Increase by 10 mL q 8 hrs as tolerated to goal of 45 mL/hr x 24 hrs to provide: 1620 kcals/ 64 grams protein/ 592 mL free H20- (Will meet 100% of the pt's estimated nutrient needs) Monitor closely for symptoms of intolerance d/t noted possible ileus and recent PEG replacement 2. Continue [employer] to determine if the pt can safely tolerate PO intake. If pt is able to take nutrition PO, enteral nutrition may be changed to nocturnal EN to allow the pt to eat throughout the day. If nocturnal EN desired, goal rate will need to be adjusted based on the pt's nutritional intake. The below regimen would meet 75% of the pt's estimated nutrient needs: -Glucerna 1.5 @ 65 mL/hr x 12 hrs from 6P-6A would provide: 1170 kcals/ 64 grams protein/ 592 mL free H20 3. If pt advance to PO diet, recommend consistent carbohydrate restriction d/t hyperglycemia and h/o DM. Pt is at mild-moderate nutritional risk. RD will follow hospital course per protocol. Respectfully, [facility] Nutrition Therapy DATE: 02/24/17 Patient: ERIKA THOMPSON Physician: SILVINA Address: [facility] Room/Bed: [address] [place] [address], Zip: [place] [address] Admit Date: 02/23/17 Date of : [birth year] Height: 5 5 Weight: [address], LD [facility] cc: client file
--- NOTE | ~2017-02-22 | CO ---
Unit #: [id number] #: [id number] Patient: ERIKA THOMPSON [id number] [address] [place], [place] [address] [id number] Anabelle MR#: [id number] NAME: ERIKA THOMPSON. ROOM: 557 Age: 61 Sex: F Admission Date: 02/23/2017 : 1955 Attending Physician: Deandra Mercedes M.D. Primary Care Physician: Mari Betancourt M.D. Consultation Date: 02/24/2017 CONSULTATION REPORT BRIEF HISTORY The patient is a 61-year-old lady with a history of dementia, who presented with a malplaced gastrostomy tube from the [facility]. This was addressed with repositioning. It was noted on a CT scan performed during her admission workup that she had some dilated colon, possibly consistent with an ileus. The patient denies abdominal pain and has had a bowel movement over the last the evening. I am asked to evaluate for possible ileus. PAST MEDICAL HISTORY She has had a tracheostomy in the past, chronic immobility syndrome, dementia, diabetes, hypertension, hyperlipidemia, anxiety, morbid obesity. PAST SURGICAL HISTORY She has had appendectomy, tracheostomy, and PEG placement. SOCIAL HISTORY Lives in [facility]. No alcohol. No tobacco. FAMILY HISTORY Negative for GI malignancy. MEDICATIONS Combivent, Cogentin, Bumex, Lopressor, Norvasc, Herman, Ativan, Tylenol, NovoLog, potassium chloride. REVIEW OF SYSTEMS No cardiopulmonary complaints at this time. Else, 10 systems reviewed and negative. PHYSICAL EXAMINATION GENERAL: She is awake, alert, in no distress. VITAL SIGNS: Currently, afebrile. HEENT: Unremarkable. NECK: Supple. No JVD. Trachea midline. LUNGS: Clear to auscultation. Bilateral breath sounds symmetric. CARDIOVASCULAR: Regular rate and rhythm. ABDOMEN: Soft. It is mildly tender around the PEG tube, but no point tenderness. No hernias. EXTREMITIES: No clubbing, cyanosis, or edema. DIAGNOSTIC STUDIES LABORATORY RESULTS: Show a normal white count. Unit #: [id number] #: [id number] Patient: ERIKA THOMPSON ASSESSMENT AND PLAN Possible colonic ileus, although mild. Benign abdominal exam. PLAN Doubt intestinal obstruction. We will begin a bowel regimen with milk of magnesia. We will try neostigmine to stimulate colon. Dictated by... Fan Rawls/damian TD: 02/24/2017 11:20 JOB #: [id number] CONSULTATION REPORT Page 1 of 1 X Minh Cedeno MD X CONSULTATION REPORT
--- NOTE | ~2017-02-22 | CT4 ---
[facility] A Service of [facility] & [facility] RADIOLOGY TEXT RESULTS PATIENT: ERIKA THOMPSON LOCATION: [facility] 55-01 : 54 UNIT #: [id number] AGE: [address]: Deandra Mercedes MD SEX: F ORDER DR: [id number] [facility] [address] [place], [place] [address] [id number] I MR#: [id number] Acc #: [id number] NAME: ERIKA THOMPSON : 1955 SEX: F STUDY DATE/TIME: 02/22/2017 23:11 UNIT: [facility] ROOM: [facility] STUDY DESCRIPTION: CT Abd and Pelv Wo Cont Attending Physician: Deandra Mercedes M.D. Ordering Physician: Evelina Bryant M.D. Primary Care Physician: Mari Betancourt M.D. MEDICAL IMAGING REPORT This report is preliminary unless electronic signature is present EXAM CT abdomen and pelvis without contrast. HISTORY Abdomen pain today. Assess G tube position. TECHNIQUE CT abdomen and pelvis was performed without contrast. This CT exam was performed with one or more of the following radiation dose reduction techniques: automatic exposure control, adjustment of mA and/or kV according to patient size, and iterative reconstruction. FINDINGS CT ABDOMEN: The gastrostomy tube is malpositioned, with the inflated cuff in the subcutaneous tissues of the anterior midline upper abdomen, approximately 2 cm superficial to the peritoneum. Multiple gallstones measure up to approximately 1.5 cm. Lhga-gr-avxehzqp generalized colonic distension, primarily air-filled. The liver, spleen, kidneys, and adrenal glands are unremarkable. Generalized pancreatic parenchymal atrophy. No ascites. No free air. CT PELVIS: Btlq-fa-jbxonqri distension of the sigmoid colon and upper rectum, containing air and fluid. No free fluid. No bowel displacement or wall thickening. The uterus is unremarkable. Urinary bladder is unremarkable. IMPRESSION 1. Malpositioned gastrostomy tube. The tube lies in the subcutaneous tissues in the anterior upper abdominal midline and the inflated cuff lies approximately 2 cm superficial to the peritoneal cavity. 2. No free fluid or free air within the abdomen or pelvis. 3. Multiple gallstones. [facility] A Service of [facility] & [facility] RADIOLOGY TEXT RESULTS PATIENT: ERIKA THOMPSON LOCATION: [facility] 557-01 : 53 UNIT #: [id number] AGE: [address]: Deandra Mercedes MD SEX: F ORDER DR: 4. Iajc-sv-ervampzp distension of the colon and upper rectum. This could be secondary to generalized ileus. Dictated by... Jake Ho M.D. THIS IS AN ELECTRONICALLY VERIFIED REPORT Jake Ho M.D. at 02/24/2017 4:44 AM RADHA/franklyn TD: 02/23/2017 22:53 JOB #: [id number] MEDICAL IMAGING REPORT Page 1 of 1 COPY
--- NOTE | ~2017-02-22 | OR ---
Unit #: [id number] #: [id number] Patient: ERIKA THOMPSON [id number] [address] [place], [place] [address] [id number] Anabelle MR#: [id number] NAME: ERIKA THOMPSON. ROOM: 557 Date of Procedure: 02/23/2017 Admission Date: 02/23/2017 Surgeon: Roosevelt Resendiz M.D. : 1955 Attending Physician: Deandra Mercedes M.D. Primary Care Physician: Mari Betancourt M.D. OPERATIVE REPORT PROCEDURE PERFORMED Esophagogastroduodenoscopy with PEG tube placement. INDICATIONS FOR PROCEDURE The patient is a 61-year-old, had a buried bumper and had G-tube placed several months ago. CT scan shows the bumper between gastric and the abdominal wall. MEDICATIONS Monitored anesthesia. POSTOPERATIVE FINDINGS Existing buried bumper tube was removed, but using the same ostomy, I have placed trocar and cannula and a guidewire was passed which was used to place the new G-tube by push method. PLAN 1. Please see inpatient orders for details. 2. Limited EGD exam was within normal limits. DESCRIPTION OF PROCEDURE The patient was explained of the procedure, risks, and benefits. Informed consent was obtained from her sister power of estate attorney over the phone. She was brought to the endoscopy room. She was given monitored anesthesia. Scope was passed down the mouth into esophagus, stomach, duodenum, and distal duodenum. Exam was completed which was largely unremarkable. Existing ostomy site was seen. No bumper was seen on the inside. I could not pass a wire through the tube into the stomach. At this point, the buried bumper was pulled out. A new trocar and cannula was passed through the existing ostomy, and a wire was passed through it. The wire was then pulled out of patient's mouth using a snare. A new push method tube was then placed over the wire and pulled out of through the abdominal wall where it was secured with an external bumper. The scope was reintroduced. The bumper was nicely in place. No major complications seen. The patient tolerated the procedure well. Dictated by... Roosevelt Resendiz M.D. Unit #: [id number] #: [id number] Patient: ERIKA THOMPSON JOSE/damain TD: 02/23/2017 16:56 JOB #: [id number] OPERATIVE REPORT Page 1 of 1 X Roosevelt Resendiz MD PROCEDURE OPERATIVE NOTE
--- NOTE | ~2017-02-22 | CR2 ---
[facility] A Service of [facility] RADIOLOGY TEXT RESULTS PATIENT: ERIKA THOMPSON LOCATION: [facility] 557 : [birth year] UNIT #: [id number] AGE: [address]: Deandra Mercedes MD SEX: F ORDER DR: [id number] [facility] [address] [place], [place] [address] [id number] I MR#: [id number] Acc #: [id number] NAME: ERIKA THOMPSON : 1955 SEX: F STUDY DATE/TIME: 02/22/2017 22:17 UNIT: [facility] ROOM: [facility] STUDY DESCRIPTION: CR Abdomen Acute Series Attending Physician: Deandra Mercedes M.D. Ordering Physician: Evelina Bryant M.D. Primary Care Physician: Mari Betancourt M.D. MEDICAL IMAGING REPORT This report is preliminary unless electronic signature is present EXAM Acute abdomen series, 02/22/2017. HISTORY 61-year-old female with abdominal pain for 2 days. COMPARISON Abdomen, 09/16/2016. FINDINGS Frontal chest and 3 flat and upright views of the abdomen. Four total images. Mild cardiomegaly is unchanged. Mediastinum and pulmonary vasculature unremarkable. Lungs clear. No pneumothorax. There are multiple mildly prominent gas-filled loops of bowel. Ileus versus small bowel obstruction not excluded. No free intraperitoneal air. IMPRESSION 1. Stable cardiomegaly. No other acute chest findings. 2. Multiple mildly prominent gas-filled loops of bowel. Ileus versus small bowel obstruction not excluded. Dictated by... Tree Salgado M.D. THIS IS AN ELECTRONICALLY VERIFIED REPORT Tree Salgado M.D. at 02/24/2017 10:45 AM ROSE/franklyn TD: 02/23/2017 22:04 JOB #: [id number] [facility] A Service of [facility] RADIOLOGY TEXT RESULTS PATIENT: ERIKA THOMPSON LOCATION: [facility]7-01 : 53 UNIT #: [id number] AGE: [address]: Deandra Mercedes MD SEX: F ORDER DR: MEDICAL IMAGING REPORT Page 1 of 1 COPY
--- NOTE | ~2017-02-22 | HP ---
Unit #: [id number] #: [id number] Patient: ERIKA THOMPSON [id number] [facility] [address] [place], [place] [address] [id number] Anabelle MR#: [id number] NAME: ERIKA THOMPSON. ROOM: 557 Age: 61 Sex: F Admission Date: 02/23/2017 : 1955 Attending Physician: Deandra Mercedes M.D. Primary Care Physician: Mari Betancourt M.D. HISTORY AND PHYSICAL REASON FOR ADMISSION PEG tube malfunction per report. HISTORY OF PRESENT ILLNESS Please note the patient does have a history of dementia. Therefore, this history as well as review of systems is markedly limited. Therefore, I have done the majority of it after chart review from emergency room notes. Apparently while at the senior living the patient became more agitated. Apparently they noted the patient could not tolerate routine tube feeding through the G tube. There was concern for possible small bowel obstruction. I am not entirely sure if she had a small bowel followthrough and/or x-ray. However, she was sent to [facility] for further evaluation. While evaluated in the emergency room, apparently abdominal x-ray was performed, which showed ileus and PEG tube not present within the GI tract. There was no free air which was noted. At the present time the patient is yelling and/or very agitated and she states that she wishes to have a regular diet. She does not believe she requires the PEG tube any more. PAST MEDICAL HISTORY 1. Recent hospital admission 10/2016 for trach malfunction. Since that time, and at the present time, the patient no longer has a tracheostomy present. She is routinely followed by Dr. Heath of pulmonary services. I assume her chronic respiratory failure has improved. However, I do not have verified details. 2. Prior history of ileus and/or aspiration pneumonia. 3. Chronic immobility syndrome. 4. Chronic respiratory failure with prior tracheostomy and/or PEG tube placement after prolonged hospital stays. Currently trach site appears closed. 5. Prior history of CVA. 6. Avendano palsy. 7. Diabetes. 8. Hypertension. 9. Hyperlipidemia. 10. Anxiety. 11. Depression. 12. Severe morbid obesity. 13. Dementia, multifactorial in origin, likely secondary to vascular and/or Alzheimer. 14. Longstanding history of noncompliance in the past. 15. Long-term senior living resident. Unit #: [id number] #: [id number] Patient: ERIKA THOMPSON PAST SURGICAL HISTORY 1. Left nvcex-grw-uhty amputation. 2. Right hand surgery. 3. Appendectomy. 4. Tracheostomy PEG tube placement. SOCIAL HISTORY The patient resides in a senior living. No alcohol. No tobacco. No illicit drug use. Per chart review, the patient is full code. FAMILY HISTORY Reviewed, negative, noncontributory, non-pertinent. Given current circumstance, it has not been reviewed extensively with the hypertension. ALLERGIES Neomycin, bacitracin, clotrimazole, miconazole, polymyxin. HOME MEDICATIONS 1. Combivent. 2. ISO oral. 3. Cogentin. 4. Pantoprazole. 5. Bumex. 6. Lopressor. 7. Norvasc. 8. Bethesda. 9. Ativan. 10. Tylenol. 11. NovoLog. 12. Levemir. 13. Potassium chloride. REVIEW OF SYSTEMS Please see above. Limited secondary to current state. Twelve points otherwise negative except for those positive noted in the history of present illness. PHYSICAL EXAMINATION GENERAL: The patient is a morbidly obese 61-year-old female, quite agitated, saying that she wishes to eat and no longer wishes to have any diet through her G tube. VITALS: Temperature 98.2, pulse 91, respiratory rate 16, blood pressure 112/80. HEENT: Head atraumatic. NECK: Supple. Tracheostomy scar is present midline. I do not see any visible JVD. Her mucous membranes do appear to be dry. LUNGS: Diminished to anterior auscultation bilaterally. The patient has difficulty sitting. HEART: S1 and S2 are audible. No murmur heard. ABDOMEN: Distension noted. G tube present. I do not see any erythema around the G tube. Appears to be nontender. No rebound. No guarding. EXTREMITIES: Lower extremities, 1-2+ pitting edema noted on right lower extremity, left lower extremity status post amputation. NEUROLOGIC: The patient is alert and oriented times two at the present time. PSYCHIATRY: The patient demonstrates normal mood and affect. She is a bit agitated. Unit #: [id number] #: [id number] Patient: ERIKA THOMPSON EMERGENCY ROOM COURSE The patient underwent urinalysis which was mildly positive. Culture currently pending. BMP shows a potassium of 2.8, glucose 148, bicarb 33, chloride 96, albumin 3.1. CBC shows hemoglobin 12.0, white blood cell count 10.3, decreased MCV noted at 77.6. The patient received KCL IV per potassium protocol, as well as 1 g of IV Rocephin. The patient did undergo I believe CT/abdomen imaging which revealed the aforementioned results. ASSESSMENT 1. Ileus. 2. Dislodged/malfunctioning G tube. 3. Presumed urinary tract infection. 4. Hypokalemia. 5. Severe morbid obesity. 6. Dementia, multifactorial in origin. 7. Prior history of chronic respiratory failure with trach present in the past, currently removed and/or closed. 8. Prior history of dysphagia secondary to CVA. 9. Chronic immobility syndrome. 10. Diabetes. 11. Hypertension. 12. Hyperlipidemia. 13. Depression. PLAN Admission. N.p.o. status for now. Speech therapy evaluation. GI evaluation in regard to malfunctioning G tube. Consideration will be given to surgical evaluation secondary to presumed ileus. The patient may require NG tube and/or surgical intervention. She will be maintained on routine Accu-Cheks, IV fluids, as well as routine medications will be converted to IV form. Potassium will be repleted. Will await final urine culture. She will be maintained on IV Rocephin for now. Further hospital course to follow, pending the above evaluation by consultants as detailed. Dictated by Fan Gamez/quentin TD: 02/23/2017 09:08 JOB #: [id number] HISTORY AND PHYSICAL Page 1 of 1 X Deandra Mercedes MD X HISTORY AND PHYSICAL
--- NOTE | ~2017-02-22 | CR72 ---
[facility] A Service of [facility] & [facility] RADIOLOGY TEXT RESULTS PATIENT: ERIKA THOMPSON LOCATION: [place] [address] : [birth year] UNIT #: [id number] AGE: [address]: Deandra Mercedes MD SEX: F ORDER DR: [id number] [facility] [address] [place], [place] [address] [id number] I MR#: [id number] Acc #: [id number] NAME: ERIKA THOMPSON. : 1955 SEX: F STUDY DATE/TIME: 02/23/2017 9:51 UNIT: [facility] ROOM: [facility] STUDY DESCRIPTION: CR Chest Single View Portable Attending Physician: Deandra Mercedes M.D. Ordering Physician: Deandra eMrcedes M.D. Primary Care Physician: Mari Betancourt M.D. MEDICAL IMAGING REPORT This report is preliminary unless electronic signature is present EXAM Portable chest INDICATIONS Shortness of breath for 1 day. COMPARISON 11/07/2016 FINDINGS Heart size stable. Calcified mediastinal and hilar lymph nodes. Calcified granuloma right base. No airspace consolidation. IMPRESSION No active disease. Dictated by... Chacorta Godinez M.D. THIS IS AN ELECTRONICALLY VERIFIED REPORT Chacorta Godinez M.D. at 02/24/2017 7:34 AM ARS/yessenia TD: 02/24/2017 06:56 JOB #: [id number] MEDICAL IMAGING REPORT Page 1 of 1 COPY
[~2017-02-22 21:12] MED LIST changes: +POTASSIUM CHLO10 MEQ PO
[2017-02-23 01:42] LABS: BASOPHIL% 0.5 % (0-2.5); EOSINOPHIL# 0.2 X10e3 (0-0.7); EOSINOPHIL% 1.9 % (0.0-7.0); HEMATOCRIT 36.3 % (35.0-45.0); LYMPHOCYTE% 29.2 % (17.0-45.0); MEAN CELL VOLUME 77.6 FL (83-96); MEAN CORPUSCULAR HEMOGLOBIN 25.6 PG (28-34); MEAN PLATELET VOLUME 9.1 FL (6.5-11.5); MONOCYTE# 0.9 X10e3 (0-1.0); MONOCYTE% 8.3 % (3.0-12.0); NEUTROPHIL# 6.2 X10e3 (1.5-7.1); NEUTROPHIL% 60.1 % (40-75); PLATELET COUNT 346 X10e3 (140-420); RED BLOOD COUNT 4.68 X10e (3.90-5.30); RED CELL DISTRIBUTION WIDTH 16.6 % (11.0-15.5); WHITE BLOOD COUNT 10.3 X10e3 (4.0-10.5)
[2017-02-23 01:43] LABS: DIFF IND NO
[2017-02-23 01:56] LABS: PROTHROMBIN TIME (PATIENT) 10.9 SECONDS (10.0-11.7)
[2017-02-23 02:05] LABS: ALBUMIN SERUM 3.1 g/dL (3.5-5.0); BILIRUBIN, DIRECT 0.1 mg/dL (0.0-0.2); BILIRUBIN,INDIRECT 0.5 mg/dL (0.0-0.9); BILIRUBIN,TOTAL 0.6 mg/dL (0.2-2.0); BUN/CREATININE RATIO 23.75; CREATININE SERUM 0.8 mg/dL (0.6-1.4); GLOM FILT RATE Estimated 91.7 mL/min (>60); MAGNESIUM 1.8 mg/dL (1.6-3.0); PROTEIN TOTAL SERUM 8.5 g/dL (6.0-8.3)
[2017-02-23 02:12] LABS: POTASSIUM 2.8 mmol/L (3.5-5.1)
[2017-02-23 02:25] LABS: URINE SOURCE CLEAN CATCH
[2017-02-23 02:31] LABS: URINE APPEARANCE CLEAR; URINE BILIRUBIN NEG (NEG); URINE BLOOD 1+ (NEG); URINE COLOR YELLOW; URINE GLUCOSE NEG (NEG); URINE KETONE NEG (NEG); URINE LEUKOCYTE ESTERASE 1+ (NEG); URINE NITRATE NEG (NEG); URINE PROTEIN 1+ (NEG); URINE SPECIFIC GRAVITY 1.019 (1.003-1.035)
[2017-02-23 02:48] LABS: CULTURE INDICATED? YES; URINE BACTERIA AUWI 4+ (NEGATIVE); URINE SQUAMOUS EPITHELIAL CELL FEW /[HPF]
== END 2017-02-25 17:46 | DRG 394 ==
LOC: CED 21:12 → C5B 02-23 04:57 → CEDOF 02-23 04:57 → C5B 02-23 05:48 → CED 02-23 05:48 → CEDOF 02-23 06:50 → C5B 02-23 07:54
PROVIDERS: Internal Medicine; Student in an Organized Health Care Education/Training Program
PROC: 05H933Z Insertion of Infusion Device into Right Brachial Vein, Percutaneous Approach (ICD-10-PCS; 2017-02-23)
PROC: 0D20XUZ Change Feeding Device in Upper Intestinal Tract, External Approach (ICD-10-PCS; principal; 2017-02-23 12:45)
PROC: 0DJ08ZZ Inspection of Upper Intestinal Tract, Via Natural or Artificial Opening Endoscopic (ICD-10-PCS; 2017-02-23 12:45)
DX: K94.23 Gastrostomy malfunction (principal); K56.7 Ileus, unspecified; F11.20 Opioid dependence, uncomplicated; F03.90 Unspecified dementia, unspecified severity, without behavioral disturbance, psychotic disturbance, mood disturbance, and anxiety; Z89.612 Acquired absence of left leg above knee; N39.0 Urinary tract infection, site not specified; M62.3 Immobility syndrome (paraplegic); G51.0 Bell's palsy; E11.9 Type 2 diabetes mellitus without complications; I10 Essential (primary) hypertension; E78.5 Hyperlipidemia, unspecified; F32.9 Major depressive disorder, single episode, unspecified; F41.9 Anxiety disorder, unspecified; E66.01 Morbid (severe) obesity due to excess calories; Z68.37 Body mass index [BMI] 37.0-37.9, adult; Z91.19 Patient's noncompliance with other medical treatment and regimen; Z88.1 Allergy status to other antibiotic agents; Z88.8 Allergy status to other drugs, medicaments and biological substances; J44.9 Chronic obstructive pulmonary disease, unspecified
CPT/HCPCS: 36415; 71010; 74020; 74022; 74176; 80048; 80076; 81003; 82947; 83690; 83735; 85025; 85610; 85730; 87086; 87088; 87186; 92610; 94640; 94760; 99285; G8996-GN; G8997-GN; J0295; J0696; J2060; J2250; J2710; J3010; J3490